=== PATIENT | male | born 1955 | race Caucasian/White ===

== ENCOUNTER 2016-10-18 10:42 | Inpatient (IN) ==
[2016-10-18] MEDS ORDERED: methylPREDNISolone SOD SUC 125 MG/2 ML VIAL IV STA (12:50)
[2016-10-18] MEDS ORDERED: ONDANSETRON 4 MG/2 ML VIAL IV STA (12:50)
[2016-10-18] MEDS ORDERED: ALBUTEROL/IPRATROPIUM 3 ML NEB RESP TX STA (12:50)
[2016-10-18] MEDS ORDERED: SODIUM CHLORIDE 0.9% 1,000 ML IV STA (12:50)
[2016-10-18 13:10] LABS: Apearance,Urine CLEAR (Clear); Bilirubin,Urine Negative (Negative); Blood, Urine Negative (Negative); Glucose,Urine (UA) Negative (Negative); Ketones,Urine Negative (Negative); Nitrite,Urine Negative (Negative); Protein,Urine 30 MG/DL; Squamous Epithelial Cell,Urine Occasional /HPF (0-10); Urine Color Yellow (Yellow); Urine Specific Gravity 1.013 (1.001-1.035); Urine Urobilinogen < 2.0 EU/DL (0.2-1.0); WBC,Urine 1 /HPF (0-6)
[2016-10-18] MEDS ORDERED: methylPREDNISolone SOD SUC 40 MG/1 ML VIAL ONE (13:10)
[2016-10-18] MEDS ORDERED: ONDANSETRON 4 MG/2 ML VIAL ONE (13:10)
[2016-10-18] MEDS ORDERED: methylPREDNISolone SOD SUC 125 MG/2 ML VIAL ONE (13:18)
[2016-10-18 13:20] LABS: Basophils % 0.5 % (0.0-0.8); Hematocrit 26.2 VOL% (42.0-52.0); Hemoglobin 8.6 GM/DL (14.0-18.0); Immature Granulocytes % 2.1 %; Immature Granulocytes Absolute 0.12 #; Lymphocytes # 0.4 10*3/uL (1.4-4.0); Lymphocytes % 6.9 % (21.2-54.2); Mean Corpuscular HGB Conc 32.8 GM/DL (32-36); Mean Corpuscular Hemoglobin 25 PG (27-34); Mean Corpuscular Volume 75.3 FL (87-102); Mean Platelet Volume 11.1 FL (9.6-12.0); Monocytes # 0.1 10*3/uL (0.11-0.8); NRBC # 0.03 10*3/uL; Neutrophils # 5.2 10*3/uL (1.4-7.4); Neutrophils % 89.5 % (38.7-73.9); Platelet Count 134 T/CUMM (130-400); Red Blood Count 3.48 MC/CUMM (3.8-5.5); Red Cell Distribution Width 19.1 % (9.3-17.3); White Blood Count 5.8 T/CUMM (4-12)
--- NOTE | 2016-10-18 13:26 | Emergency Department Note ---
ICamelia Kasabria, am scribing for, and in the presence of, Osmin Rodrigues MD 13:01. IRavi Charles R, MD, personally performed the services described in this documentation, ascribed by Billie Denise in my presence, and it is both accurate and complete 326 . Arrival - Arrival Chief Complaint: Weakness Stated Complaint: Spitting up phlegm-CA pt, just left cancer center ED Nursing Triage Note: CURRENTLY TAKING CHEMO/RADIATION FOR LUNG CA, PT WAS TOO WEAK TO GO FOR TREATMENT TODAY, DENIES CP/SOB, N/V ONSET THIS AM,. HAD TREATMENT YESTERDAY Mode of Arrival: Wheelchair Limitations: No Limitations Source: Patient Time Seen by Provider: 10/18/16 12:23 - History of Present Illness HPI Narrative: This is a 61 y/o black male presenting to the ED with c/o nausea, vomiting, and feeling to weak to go to radiation treatment this morning. Pt states he woke up this morning and was nauseated. He then vomited and states he has continued to vomit and feel weak. He received chemotherapy for his lung cancer yesterday. He denies chest pain, SOB, cough, fever, chills, abdominal pain, back pain, dysuria , and vision change. He is a pt of Dr. Calle. His PMHx is consistent with HTN , pacemaker, and PNA 07/2016. Consistency: constant Severity: moderate Allergies/Adverse Reactions: Allergies Allergy/AdvReac Type Severity Reaction Status Date / Time No Known Allergies Allergy Verified 10/18/16 11:24 Home Medications: Home Medications Medication Instructions Recorded Confirmed Type Carvedilol [Coreg] 6.25 mg PO BID W/MEALS 08/15/16 10/18/16 History Furosemide 40 mg PO BID 08/15/16 10/18/16 History Apixaban [Eliquis] 5 mg PO BID W/MEALS 10/18/16 10/18/16 History Fluticasone/Salmeterol 250-50 1 puff INH BID 10/18/16 10/18/16 History [Advair 250-50] Potassium Chloride 10 meq PO DAILY 10/18/16 10/18/16 History Review of System - Review of System 12 point system: reviewed and no additional remarkable complaints except as stated - Review of System Constitutional: Absent: chills, fever, weakness Eyes: Absent: vision change Head/Ears/Nose/Throat: Absent: nasal drainage Respiratory: Absent: cough, wheezing Cardiovascular: Absent: chest pain Gastrointestinal: Present: nausea, vomiting. Absent: abdominal pain, diarrhea Medical,Surgical,& Family Hx - Medical History Cardio: History of: Hypertension, Pacemaker, Cardiovascular Problems ( Assistant Professor Of Economics Dr. Kailash Kimbrough [facility] [phone]) Neurology: History of: TIA No history of: Seizures HEENT: History of: Ear Problem (Mild Loss), Eye Problem (Needs), Dental Problems (Missing Teeth) Respiratory: History of: Pneumonia (07/2016) No history of: Lung Cancer (Rt Lower Lobe Mass-For Bx 08/20/16) Hematology: No history of: Blood Transfusion Reaction Other: No history of: Cancer - Surgical History Cardiac Surgeries: Sugical HX of: Cardiac Catheterization (Stents), Cardiac Surgery (Pacemaker) HEENT Surgeries: Patient denies: Eye Surgery - Family History Family History: Reports;: Family Diabetes (Grandmother), Family Heart Disease ( Father/Mother) Denies;: Family Cancer, Family Stroke - Social History Smoking Status: Smoker, status unknown Exam Vital Signs: Vital Signs Temperature 98.2 F 10/18/16 12:31 Pulse Rate 105 H 10/18/16 14:15 Respiratory Rate 18 10/18/16 12:31 Blood Pressure 115/88 10/18/16 14:15 O2 Sat by Pulse Oximetry 98 10/18/16 14:00 - General General appearance: alert, in no apparent distress, cachectic, other (temporal wasting ) - Head Head exam: Present: atraumatic, normocephalic, normal inspection - Eye Eye exam: Present: PERRL, EOMI. Absent: normal appearance (anemic pale conjunctiva ) - ENT ENT exam: Present: mucous membranes moist, TM's normal bilaterally, normal external ear exam. Absent: normal exam, normal oropharynx - Expanded ENT Exam Throat exam: Present: other (thrush present on tongue and in the back of the pt' s throat) - Chest Chest inspection: Present: normal inspection, symmetric chest wall rise. Absent : tenderness - Respiratory Respiratory exam: Present: wheezes (bilateral ), other (egophony; mass to right lung ). Absent: normal lung sounds bilaterally - Cardiovascular Cardiovascular exam: Present: regular rate, normal rhythm, normal heart sounds - Abdominal Exam Abdominal exam: Present: soft, normal bowel sounds. Absent: distention, tenderness - Rectal Exam Rectal exam: Present: heme (-) stool - Extremities Exam Extremities exam: Present: normal inspection, full ROM, normal capillary refill. Absent: tenderness, pedal edema, calf tenderness - Back Exam Back exam: Present: normal inspection, full ROM. Absent: tenderness - Neurological Exam Neurological exam: Present: alert, oriented X3, CN II-XII intact, normal gait, reflexes normal. Absent: motor sensory deficit - Psychiatric Psychiatric exam: Present: normal affect, normal mood - Skin Skin exam: Present: warm, dry, intact, normal color, other (poor skin turgor ). Absent: rash, diaphoresis Course - Consultations Consultation #1: Dr. Redmond will admit for Time: 15:08 Results - Labs CBC & BMP: 10/18/16 12:44 10/18/16 12:44 Lab Results: I have reviewed the patients labs Disposition Clinical Impression: Right lower lobe lung mass, Dizziness, Nausea & vomiting, Generalized weakness , Anemia of chronic disease, Pleural effusion, right, COPD (chronic obstructive pulmonary disease) Case discussed with: patient, patient's family Disposition: Still a Patient Condition: Stable Time of Disposition: 15:18
[2016-10-18 13:53] LABS: Albumin 3.4 G/DL (3.4-5.0); Bilirubin,Total 2.7 MG/DL (0.2-1.0); Calcium 8.6 MG/DL (8.5-10.1); Lactic Acid 4.4 MMOL/L (0.4-2.0); Osmolality,Calculated 281.8 MOS/KG (273-304); Potassium 4.9 MMOL/L (3.5-5.1); Total Protein 7.6 G/DL (6.4-8.3)
[2016-10-18 13:56] LABS: Burr Cells 1+; Hypochromasia Slight; Macrocytosis 1+; Platelet Estimate Adequate
--- NOTE | 2016-10-18 14:07 | XRay Report ---
XR chest 1V portable Indication: Lung cancer. Shortness of breath. Comparison: Chest x-ray 08/20/2016 Technique: Portable AP chest was performed. Findings: Right-sided pleural effusion is present which is moderate in size. Parenchymal opacities in the right lung base may be part reflect atelectasis. Infectious process cannot be excluded. The degree of cardiomegaly is stable. AICD is stable. Right upper lung and left lung are otherwise clear. Bones and soft tissues are stable. Impression: 1. Moderate right-sided pleural effusion is demonstrated. 2. Parenchymal opacities within the right lung base may in part reflect atelectatic change. Infectious process is not excluded. 10/18/2016 2:03 PM PROCEDURE INTERPRETED AT [facility] DEPARTMENT OF RADIOLOGY Final Report Signed by: Dr. Pipo Ellis
--- NOTE | 2016-10-18 14:08 | XRay Report ---
Exam: XR abdomen 2V Date: 10/18/2016 12:50 PM Comparison: Chest x-ray 08/20/2016 Indication: Nausea and vomiting Technique:[Supine and erect abdomen] Findings: Gas in nondistended loops of small bowel with no free air. Diffuse arterial calcifications with small renal calculi. Progressive pleural and parenchymal findings at the visualized right lung base with left subclavian atrioventricular AICD. Impression: Gas in nondistended loops of small bowel which could be related to mild enteritis, etc. No free air. Progressive pleural and parenchymal findings at the right lung base in patient with carcinoma of the lung. Left subclavian atrioventricular AICD. Arterial calcifications with small renal calculi. PROCEDURE INTERPRETED AT [facility] DEPARTMENT OF RADIOLOGY Final Report Signed by: Dr. Edith Maier
[2016-10-18] MEDS ORDERED: ALBUTEROL/IPRATROPIUM 3 ML NEB RESP TX PRN (16:23)
[2016-10-18] MEDS ORDERED: LACTULOSE 20 GM/30 ML UDCUP PO PRN (16:23)
[2016-10-18] MEDS ORDERED: MYLANTA/LIDO VISC 2:1 300 ML BOTTLE SWISH/SPIT PRN (16:23)
[2016-10-18] MEDS ORDERED: ONDANSETRON 4 MG/2 ML VIAL IV PRN (16:23)
[2016-10-18] MEDS ORDERED: traMADol 50 MG TABLET PO PRN (16:23)
[2016-10-18] MEDS ORDERED: TEMAZEPAM 7.5 MG CAPSULE PO PRN (16:23)
[2016-10-18] MEDS ORDERED: MYLANTA/LIDO VISC 2:1 300 ML BOTTLE SWISH/SWAL PRN (16:23)
[2016-10-18] MEDS ORDERED: ACETAMINOPHEN 325 MG TABLET PO PRN (16:23)
[2016-10-18] MEDS ORDERED: ALPRAZolam 0.25 MG TABLET PO PRN (16:23)
[2016-10-18] MEDS ORDERED: SODIUM CHLORIDE 0.9% 1,000 ML IV SCH (16:23)
[2016-10-18] MEDS ORDERED: ALUMINUM/MAGNES/SIMETH MAX STR 30 ML UDCUP PO PRN (16:23)
[2016-10-18] MEDS ORDERED: LOPERAMIDE 2 MG CAPSULE PO PRN ×2 (16:23)
[2016-10-18 17:14] LABS: Basophils % 0.7 % (0.0-0.8); Hematocrit 25.4 VOL% (42.0-52.0); Hemoglobin 8.2 GM/DL (14.0-18.0); Immature Granulocytes % 2.4 %; Immature Granulocytes Absolute 0.11 #; Lymphocytes # 0.1 10*3/uL (1.4-4.0); Lymphocytes % 2.6 % (21.2-54.2); Mean Corpuscular HGB Conc 32.3 GM/DL (32-36); Mean Corpuscular Hemoglobin 25 PG (27-34); Mean Corpuscular Volume 76.3 FL (87-102); Mean Platelet Volume 11.7 FL (9.6-12.0); Monocytes % 0.9 % (1.7-12.7); NRBC # 0.03 10*3/uL; Neutrophils # 4.2 10*3/uL (1.4-7.4); Neutrophils % 93.4 % (38.7-73.9); Platelet Count 134 T/CUMM (130-400); Red Blood Count 3.33 MC/CUMM (3.8-5.5); Red Cell Distribution Width 18.8 % (9.3-17.3); White Blood Count 4.5 T/CUMM (4-12)
[2016-10-18 17:23] LABS: INR 1.7; PT Patient Result 18.5 SECS
[2016-10-18] MEDS: DEXT 5% NACL 0.45% KCL 20 MEQ 20 MEQ/1,000 ML BAG IV SCH ×2 (17:32→23:57)
[2016-10-18] MEDS: FLUCONAZOLE INJ 100 MG in IV BAG 1 EACH IV SCH (17:33)
[2016-10-18] MEDS: CARVEDILOL 6.25 MG TABLET PO SCH (17:33)
[2016-10-18] MEDS: APIXABAN 5 MG TABLET PO SCH (17:33)
[2016-10-18 17:48] LABS: Magnesium 2.5 MG/DL (1.8-2.4); Uric Acid 12.2 MG/DL (3.5-7.2)
[2016-10-18 17:53] LABS: Albumin 3.2 G/DL (3.4-5.0); Calcium 8.4 MG/DL (8.5-10.1); Total Protein 7.3 G/DL (6.4-8.3)
[2016-10-18 17:54] LABS: Osmolality,Calculated 285.5 MOS/KG (273-304)
[2016-10-18 20:18] LABS: Lymphocytes 7 % (20-55); Myelocytes 4 %; Segmented Neutrophils 89 % (50-85); Total Cells Counted 100
[2016-10-18 20:19] LABS: Elliptocytes Few; Hypochromasia 1+; Platelet Estimate Adequate; Polychromasia Few
[2016-10-18] MEDS: FLUTICASONE/SALMETEROL 250-50 DISKUS 14 DOSE INH SCH (21:06)
[2016-10-18] MEDS: FUROSEMIDE 40 MG TABLET PO SCH (21:06)
[2016-10-19] MEDS ORDERED: DEXT 5% NACL 0.45% KCL 20 MEQ 20 MEQ/1,000 ML BAG IV SCH (04:30)
[2016-10-19 05:43] LABS: Basophils # 0.1 10*3/uL (0.0-0.2); Hematocrit 24.5 VOL% (42.0-52.0); Immature Granulocytes % 5.1 %; Immature Granulocytes Absolute 0.25 #; Lymphocytes # 0.1 10*3/uL (1.4-4.0); Lymphocytes % 1.8 % (21.2-54.2); Mean Corpuscular HGB Conc 31.4 GM/DL (32-36); Mean Corpuscular Hemoglobin 24 PG (27-34); Mean Corpuscular Volume 77.8 FL (87-102); Mean Platelet Volume 11.5 FL (9.6-12.0); Monocytes # 0.1 10*3/uL (0.11-0.8); NRBC # 0.08 10*3/uL; Neutrophils # 4.4 10*3/uL (1.4-7.4); Neutrophils % 90.1 % (38.7-73.9); Platelet Count 102 T/CUMM (130-400); Red Blood Count 3.15 MC/CUMM (3.8-5.5); Red Cell Distribution Width 18.7 % (9.3-17.3); White Blood Count 4.9 T/CUMM (4-12)
[2016-10-19 05:45] LABS: Hemoglobin 7.7 GM/DL (14.0-18.0)
[2016-10-19 06:30] LABS: Anisocytosis 2+; Band Neutrophils 11 % (0-10); Hypochromasia 2+; Lymphocytes 2 % (20-55); Macrocytosis 2+; Metamyelocytes 14 %; Myelocytes 2 %; Ovalocytes 1+; Platelet Estimate Decreased; Polychromasia Few; Segmented Neutrophils 69 % (50-85); Total Cells Counted 100
--- NOTE | 2016-10-19 08:28 | XRay Report ---
XR chest 2V Indication: Shortness of breath. Comparison: Chest x-ray 10/18/2016 Technique: PA and lateral chest x-ray was performed. Findings: Right-sided pleural effusion is stable. The degree of cardiomegaly is stable. Cardiac pacemaker is stable. Right upper lung and left lung are clear. Bones and soft tissues appear stable. Impression: 1. Stable appearance of the chest. Findings as detailed. 10/19/2016 8:25 AM PROCEDURE INTERPRETED AT [facility] DEPARTMENT OF RADIOLOGY Final Report Signed by: Dr. Pipo Ellis
[2016-10-19] MEDS: PANTOPRAZOLE 40 MG VIAL IV SCH (08:39)
[2016-10-19] MEDS: FUROSEMIDE 40 MG TABLET PO SCH (08:41)
[2016-10-19] MEDS: CARVEDILOL 6.25 MG TABLET PO SCH ×2 (08:41→17:25)
[2016-10-19] MEDS: APIXABAN 5 MG TABLET PO SCH ×2 (08:41→17:24)
[2016-10-19] MEDS: FLUTICASONE/SALMETEROL 250-50 DISKUS 14 DOSE INH SCH ×2 (08:41→21:20)
[2016-10-19] MEDS: DEXT 5% NACL 0.45% KCL 20 MEQ 20 MEQ/1,000 ML BAG IV SCH (08:42)
[2016-10-19] MEDS ORDERED: POTASSIUM CHLORIDE 10 MEQ TABLET PO SCH (09:00)
--- NOTE | 2016-10-19 09:30 | Oncology History&Physical ---
History of Present Illness Chief complaint: Acute dehydration and stomatitis History of present illness: Mr. Bey is a 61 year old male admitted with dehydration and apparently with monilial stomatitis as well. He also has worsening renal failure since admission. 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 He has been on radiation therapy. He presented to the emergency room on the afternoon of October 18 complaining of inability to take in adequate liquids and also demonstrating evidence of stomatitis including monilial stomatitis. In addition, he had a modestly elevated urea nitrogen 33 with a serum creatinine of 1.1. This is stage IIIa, T3N2 lung cancer. He has had 1 course of Taxol and carboplatin chemotherapy and was started on radiation therapy on or about September. He has now reached the point that he is having severe dysphagia and has become profoundly weak and debilitated. His serum potassium yesterday was at upper limits of normal. We hydrated him fairly aggressively overnight. He had a normal serum creatinine of 1.1 yesterday. Lab work done today also includes hyperkalemia and in addition, the patient's creatinine is actually up to 1.5 today which is worrisome. I am increasing his IV fluid rate and discontinuing potassium from the patient's drip. In addition, with hydration, his hemoglobin has fallen and we are going to transfuse packed red cells today. His uric acid level on admission was 12.2 and we are starting allopurinol daily. He has a long history of cigarette use and was found to have a right sided lower lobe lung mass in July 2016. Mass was 8.2 cm in greatest diameter and arises from the right hilum. A PET scan was done August 05, 2016 and suggested a small area of paraesophageal lymphadenopathy as the only additional area of tumor involvement. He was nonsurgical. Past medical history: Allergies: No known allergies. Review of systems: General: Positive for fatigue. Negative for fever or night sweats until recently. ENT: Positive for mouth soreness and rawness and mouth pain of recent onset but negative in the past. No history of sinus drainage or congestion. No history of epistaxis. Cardiovascular: Negative for claudication, irregular heartbeat or palpitations and negative for cardiac type chest pain. Pulmonary: He is having no painful respiration or pleuritic chest pain. He is short of breath but I think this is multifactorial. GI: Positive for odynophagia and dysphagia. Negative for abdominal pain, constipation, nausea or vomiting. : Negative for dysuria or hematuria Musculoskeletal: Negative for significant bone or joint pain but I note that the patient has clubbing. Neurologic: Negative headaches or gait disturbances or focal weakness. Psychiatric: Negative for psychiatric illness or confusion. Hematologic: Positive for anemia. Negative for bleeding disorders or blood dyscrasias. Social history: Positive for tobacco use. Physical examination: General: The patient is acutely and chronically ill. Eyes: Normal lids and conjunctivae. ENT: His oral mucosa is dry. His voice is slightly hoarse. Poor dentition. Neck: His trachea is midline and he has no obvious neck masses. Lungs: Coarse breath sounds throughout without rubs, rales or rhonchi. There is symmetrical chest motion with respiration. Cardiovascular: He has clubbing. There is no cyanosis or edema. His heart rhythm is regular without murmur, gallop or rub. There is no jugular venous distention. Abdomen: No abdominal masses, organomegaly, distention, tenderness or ascites. Musculoskeletal: He has clubbing. He has generalized muscle weakness without focal muscle atrophy or bone or joint deformity. Neurologic: Cranial nerves II through XII are intact. There are no focal neurologic deficits. Psychiatric: The patient appears to be fully oriented. Impression: He is critically ill with multiple problems as listed: Problems: Acute dehydration Hyperkalemia Hyperuricemia Anemia Monilial esophagitis Squamous cell lung cancer COPD He has been on oral potassium and Lasix, both of which I am discontinuing. The patient has been started on allopurinol. We are monitoring lab work daily. We are going to transfuse him and were treating his esophagitis. Actually, the side effects from his lung cancer itself, are only modest compared to some of the other problems going on and related to his treatment. See my orders. Home Medications Medication Instructions Recorded Confirmed Type Carvedilol [Coreg] 6.25 mg PO BID W/MEALS 08/15/16 10/18/16 History Furosemide 40 mg PO BID 08/15/16 10/18/16 History Apixaban [Eliquis] 5 mg PO BID W/MEALS 10/18/16 10/18/16 History Fluticasone/Salmeterol 250-50 1 puff INH BID 10/18/16 10/18/16 History [Advair 250-50] Potassium Chloride 10 meq PO DAILY 10/18/16 10/18/16 History Allergies Allergy/AdvReac Type Severity Reaction Status Date / Time No Known Allergies Allergy Verified 10/18/16 11:24 Medical,Surgical,& Family Hx - Medical History Cardio: History of: Hypertension, Pacemaker, Cardiovascular Problems ( Grounds Keeper Dr. Kailash Kimbrough [facility] [phone]) Neurology: History of: TIA No history of: Seizures HEENT: History of: Ear Problem (Mild Loss), Eye Problem (Needs), Dental Problems (Missing Teeth) Respiratory: History of: Pneumonia (07/2016) No history of: Lung Cancer (Rt Lower Lobe Mass-For Bx 08/20/16) Hematology: No history of: Blood Transfusion Reaction Other: No history of: Cancer - Surgical History Cardiac Surgeries: Sugical HX of: Cardiac Catheterization (Stents), Cardiac Surgery (Pacemaker) HEENT Surgeries: Patient denies: Eye Surgery - Family History Family History: Reports;: Family Diabetes (Grandmother), Family Heart Disease ( Father/Mother) Denies;: Family Cancer, Family Stroke - Social History Smoking Status: Former smoker Exam - Constitutional Vitals: Period Temp Pulse Resp BP Sys/Abdullahi Pulse Ox Last 24 Hr 97.0 F-98.4 F 95-104 16-20 100-115/71-93 98-100 Results - Labs CBC & BMP: 10/19/16 04:56 10/19/16 09:45
[2016-10-19 10:31] LABS: Bilirubin,Total 2.5 MG/DL (0.2-1.0); Calcium 8.2 MG/DL (8.5-10.1)
[2016-10-19 10:36] LABS: Potassium 6.3 MMOL/L (3.5-5.1)
[2016-10-19] MEDS ORDERED: SODIUM CHLORIDE 0.45% 1,000 ML IV SCH (11:00)
[2016-10-19] MEDS ORDERED: SODIUM CHLORIDE 0.9% 250 ML IV PRN (12:06)
[2016-10-19] MEDS: DEXTROSE 5% NACL 0.45% 1,000 ML IV SCH ×2 (12:56→22:40)
[2016-10-19] MEDS: ALLOPURINOL 300 MG TABLET PO SCH (12:56)
[2016-10-19] MEDS: FLUCONAZOLE INJ 100 MG in IV BAG 1 EACH IV SCH (19:37)
[2016-10-19 19:59] LABS: Apearance,Urine Slightly Hazy (Clear); Bilirubin,Urine Negative (Negative); Blood, Urine Moderate mg/dL (Negative); Glucose,Urine (UA) Negative (Negative); Hyaline Casts,Urine 13 /LPF (0-3); Ketones,Urine Negative (Negative); Nitrite,Urine Negative (Negative); Protein,Urine 30 MG/DL; Urine Color Yellow (Yellow); Urine Specific Gravity 1.012 (1.001-1.035); Urine Urobilinogen < 2.0 EU/DL (0.2-1.0)
[2016-10-20 05:14] LABS: Basophils # 0.1 10*3/uL (0.0-0.2); Basophils % 1.5 % (0.0-0.8); Hematocrit 27.2 VOL% (42.0-52.0); Hemoglobin 8.6 GM/DL (14.0-18.0); Immature Granulocytes % 4.5 %; Lymphocytes # 0.1 10*3/uL (1.4-4.0); Mean Corpuscular HGB Conc 31.6 GM/DL (32-36); Mean Corpuscular Hemoglobin 25 PG (27-34); Mean Corpuscular Volume 78.6 FL (87-102); Mean Platelet Volume 12.5 FL (9.6-12.0); Monocytes # 0.1 10*3/uL (0.11-0.8); Monocytes % 1.8 % (1.7-12.7); NRBC # 0.08 10*3/uL; Neutrophils % 90.2 % (38.7-73.9); Red Blood Count 3.46 MC/CUMM (3.8-5.5); White Blood Count 6.7 T/CUMM (4-12)
[2016-10-20 05:22] LABS: Platelet Count 85 T/CUMM (130-400)
[2016-10-20 05:41] LABS: Band Neutrophils 1 % (0-10); Lymphocytes 2 % (20-55); Metamyelocytes 2 %; Nucleated Red Blood Cells 4 (0-5); Segmented Neutrophils 93 % (50-85); Total Cells Counted 100
[2016-10-20 05:45] LABS: Hypochromasia 1+; Microcytosis 1+
[2016-10-20 05:46] LABS: Platelet Estimate Decreased
[2016-10-20] MEDS: DEXTROSE 5% NACL 0.45% 1,000 ML IV SCH ×3 (07:50→15:53)
[2016-10-20 08:14] LABS: Albumin 3.1 G/DL (3.4-5.0); Calcium 8.4 MG/DL (8.5-10.1); Osmolality,Calculated 280.4 MOS/KG (273-304); Total Protein 6.8 G/DL (6.4-8.3)
[2016-10-20 08:18] LABS: Potassium 6.3 MMOL/L (3.5-5.1)
[2016-10-20] MEDS: APIXABAN 5 MG TABLET PO SCH ×2 (08:24→17:43)
[2016-10-20] MEDS: PANTOPRAZOLE 40 MG VIAL IV SCH (08:24)
[2016-10-20] MEDS: ALLOPURINOL 300 MG TABLET PO SCH (08:24)
[2016-10-20] MEDS: CARVEDILOL 6.25 MG TABLET PO SCH ×2 (08:24→17:43)
[2016-10-20] MEDS: FLUTICASONE/SALMETEROL 250-50 DISKUS 14 DOSE INH SCH ×2 (08:26→21:34)
--- NOTE | 2016-10-20 10:20 | Ultrasound Report ---
US renal Bilateral Indication: Lung cancer. Elevated creatinine. Comparison: None. Technique: Using transcutaneous probe, routine renal ultrasound was performed. Ultrasound images were captured and stored. Findings: Right kidney measures 10.0 cm in craniocaudal dimension. Left kidney measures 9.0 cm in craniocaudal dimension. Each kidney demonstrates moderate lobulation of the renal cortex. No hydronephrosis or perinephric fluid collection is present. Trace amount of ascites is suggested adjacent to liver. Impression: 1. No specific abnormality of either kidney is demonstrated. 2. Trace fluid is present within the abdomen. 10/20/2016 10:15 AM PROCEDURE INTERPRETED AT [facility] DEPARTMENT OF RADIOLOGY Final Report Signed by: Dr. Pipo Ellis
--- NOTE | 2016-10-20 10:36 | Oncology Progress Note ---
Oncology Subjective PN Interval history: Mr. Bey is a 61 year old male admitted with dehydration and apparently with monilial stomatitis as well. He also has worsening renal failure since admission. 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 This is stage IIIa, T3N2 lung cancer. He has had 1 course of Taxol and carboplatin chemotherapy and was started on radiation therapy on or about September. He has now reached the point that he is having severe dysphagia and has become profoundly weak and debilitated. He has been on radiation therapy. He presented to the emergency room on the afternoon of October 18 complaining of inability to take in adequate liquids and also demonstrating evidence of stomatitis including monilial stomatitis. In addition, he had a modestly elevated urea nitrogen 33 with a serum creatinine of 1.1. However, his acidosis and his worsening liver function are contraindications to this substitution. His AST is up to 1891 with an ALT of 1368. I reviewed his medications yesterday and stopped his Lasix and his potassium. I will review them again today. However,is renal function is not improving. He is becoming progressively more acidotic. I have ordered a stat lactic acid level and it is 5.1 with normal being up to 2.0. In addition he still has hyperuricemia with a uric acid level today of 10.8. Renal function has worsened as well. His urea nitrogen is 50 with a serum creatinine of 1.6. There is a shortage of sodium bicarbonate. Sodium acetate is available but only in specific circumstances which, according to the pharmacy, do not include lactic acidosis although if his condition worsens enough, we could probably give it from the crash cart. We also obtained an ultrasound of his kidneys today and there is no evidence of ureteral obstruction. On physical examination today he remains acutely and chronically ill but does not appear to have worsened. He confirms this when I question him. His oral mucosa and pharynx are unchanged. His teeth are in very poor repair. His oral mucosa is probably less dry. Lungs: Coarse breath sounds throughout with a few scattered rhonchi. Cardiovascular: His heart rhythm is regular without murmur, gallop or rub. He has mild tachycardia. Impression: Renal function is deteriorating and he has evidence of acidosis. I would like to hydrate him further with 500 mL of D5W plus sodium bicarbonate but there is a limited amount of the sodium bicarbonate available. I have personally contacted Dr. Nitin Leo for advice on this. The patient does have an elevated lactic acid level which is exceedingly worrisome. He is not supposed to have extensive lung cancer but this could be an ominous sign if this represents progression of his cancer. COPD remains relatively stable. Hyperuricemia persists. He is on allopurinol. Exam - Constitutional Vitals: Period Temp Pulse Resp BP Sys/Abdullahi Pulse Ox Last 24 Hr 96.2 F-97.7 F 69-98 16-20 97-119/66-88 94-100 Results - Labs CBC & BMP: 10/20/16 04:28 10/20/16 06:00
--- NOTE | 2016-10-20 14:40 | Ultrasound Report ---
US liver Indication: Lung cancer. Liver failure. Renal failure. Comparison: None. Technique: Using transcutaneous probe, ultrasound imaging of the right upper quadrant was performed. Ultrasound images were captured and stored. Imaged structures include the liver, gallbladder, pancreas, right kidney, aorta, and inferior vena cava. Findings: Moderately sized right-sided pleural effusion is demonstrated. The right hepatic lobe measures 16 cm in craniocaudal dimension. Heterogeneous hyperechoic liver parenchyma is present that may in part reflect hepatic steatosis. The portal vein demonstrates sinusoidal pulsatile flow. Small amount of intra-abdominal ascites is demonstrated. The hepatic veins appear distended. No color flow was applied to the hepatic veins. Small amount of pericholecystic fluid is demonstrated. In addition, the gallbladder wall is minimally thickened measuring 3.5 mm. These findings are nonspecific in the setting of ascites. The common bile duct is normal in size measuring 4.4 mm. The visualized portion of the pancreatic head is unremarkable. The body and tail are not visualized. The right kidney measures 10.3 cm in craniocaudal dimension and is otherwise unremarkable. Aorta and inferior vena cava demonstrate no significant abnormalities. Impression: 1. Nonspecific heterogeneous hyperechoic appearance of the liver is demonstrated without evidence of focal mass. This could reflect findings of hepatic steatosis and/or cirrhotic features. 2. The portal vein demonstrates sinusoidal pulsatile flow. 3. Pleural effusion is present right chest. 4. Ascites is present. Additionally, gallbladder wall thickening and pericholecystic fluid are present. The findings of gallbladder wall thickening and pericholecystic fluid are nonspecific in the setting of ascites. In the correct clinical scenario, cholecystitis could be considered. 5. No specific abnormality of the pancreas. 10/20/2016 2:33 PM PROCEDURE INTERPRETED AT [facility] DEPARTMENT OF RADIOLOGY Final Report Signed by: Dr. Pipo Ellis
--- NOTE | 2016-10-20 14:52 | Nephrology Consult Note ---
History of Present Illness Chief complaint: Renal insufficiency, acidosis History of present illness: Mr. Bey is a 61 year old male with squamous cell carcinoma of the lung diagnosed 08/20/2016. He has had one course of Taxol and carboplatin. He started radiation therapy about 2 weeks ago. He was admitted with dysphasia and stomatitis. P.o. intake has been poor. He has developed renal insufficiency and lactic acidosis since admission. He is moderately short of breath. Home Medications Medication Instructions Recorded Confirmed Type Carvedilol [Coreg] 6.25 mg PO BID W/MEALS 08/15/16 10/18/16 History Furosemide 40 mg PO BID 08/15/16 10/18/16 History Apixaban [Eliquis] 5 mg PO BID W/MEALS 10/18/16 10/18/16 History Fluticasone/Salmeterol 250-50 1 puff INH BID 10/18/16 10/18/16 History [Advair 250-50] Potassium Chloride 10 meq PO DAILY 10/18/16 10/18/16 History Allergies Allergy/AdvReac Type Severity Reaction Status Date / Time No Known Allergies Allergy Verified 10/18/16 11:24 Medical,Surgical,& Family Hx - Medical History Cardio: History of: Hypertension, Pacemaker, Cardiovascular Problems ( Human Resources Recruiter Dr. Kailash Kimbrough [facility] [phone]) Neurology: History of: TIA No history of: Seizures HEENT: History of: Ear Problem (Mild Loss), Eye Problem (Needs), Dental Problems (Missing Teeth) Respiratory: History of: Pneumonia (07/2016) No history of: Lung Cancer (Rt Lower Lobe Mass-For Bx 08/20/16) Hematology: No history of: Blood Transfusion Reaction Other: No history of: Cancer - Surgical History Cardiac Surgeries: Sugical HX of: Cardiac Catheterization (Stents), Cardiac Surgery HEENT Surgeries: Patient denies: Eye Surgery - Family History Family History: Reports;: Family Diabetes (Grandmother), Family Heart Disease ( Father/Mother) Denies;: Family Cancer, Family Stroke - Social History Smoking Status: Former smoker Review of Systems Constitutional: anorexia, fatigue Nose, mouth and throat: as per HPI Cardiovascular: dyspnea on exertion Respiratory: dyspnea Gastrointestinal: nausea, no abdominal pain, no hematemesis, no hematochezia, no vomiting Genitourinary: no dysuria, no flank pain, no hematuria Musculoskeletal: muscle weakness Neurological: no abnormal speech, no confusion Exam - Vital Signs Vital signs: Period Temp Pulse Resp BP Sys/Abdullahi Pulse Ox Last 24 Hr 96.2 F-97.7 F 85-98 16-20 97-114/66-88 94-100 Exam: Gen.: Alert and oriented x3. ENT: Pupils equal round reactive to light. EOMs intact. Mucous membranes moist. Neck: Supple. No JVD or bruit. Cardiovascular: Regular rate and rhythm. No murmur rub or gallop Lungs: Decreased breath sounds right base. No rales or wheezes Abdomen: Soft. Nontender. Positive bowel sounds. No organomegaly Extremities: No edema Results - Labs CBC & BMP: 10/20/16 04:28 10/20/16 06:00 Assessment and Plan (1) Squamous cell carcinoma lung Status: Acute Assessment and plan: 61-year-old man admitted with: * Squamous cell carcinoma, lung. Status post Taxol and carboplatin chemotherapy. Undergoing radiation treatment * Stomatitis * ARF. Creatinine is risen from 1.1-1.6. He has been oliguric despite positive fluid balance. * Hyperkalemia. Potassium supplement discontinued. This is worsened by acidosis * Metabolic acidosis. Lactic acid level 5.1. Bicarbonate should be added to his IV fluid * Abnormal liver function tests. Liver dysfunction is the likely cause for his lactic acidosis. Liver ultrasound is underway Current Visit: Yes (2) ARF (acute renal failure) Status: Acute Current Visit: Yes (3) Lactic acidosis Status: Acute Current Visit: Yes (4) Abnormal liver function tests Status: Acute Current Visit: Yes (5) Hyperkalemia Status: Acute Current Visit: Yes (6) Stomatitis Status: Acute Current Visit: Yes
[2016-10-20] MEDS: SODIUM BICARB INJ 50 MEQ in DEXTROSE 5% NACL 0.45% 1,000 ML IV SCH (17:42)
[2016-10-20] MEDS: FLUCONAZOLE INJ 100 MG in IV BAG 1 EACH IV SCH (17:42)
[2016-10-21] MEDS: SODIUM BICARB INJ 50 MEQ in DEXTROSE 5% NACL 0.45% 1,000 ML IV SCH ×4 (07:40→17:53)
--- NOTE | 2016-10-21 07:53 | Oncology Progress Note ---
Assessment and Plan (1) COPD (chronic obstructive pulmonary disease) Status: Acute Current Visit: Yes (2) Lactic acidosis Status: Acute Current Visit: Yes (3) Nausea & vomiting Status: Acute Current Visit: Yes (4) Pleural effusion, right Status: Acute Current Visit: Yes (5) Squamous cell carcinoma lung Status: Acute Current Visit: Yes (6) Stomatitis Status: Acute Current Visit: Yes Oncology Subjective PN Interval history: Mr. Estrella states he still feels weak today. Labs were not done this morning so have ordered these to see how his renal and liver function are doing. I will add Rocephin for empiric coverage. We will continue with Diflucan and IV fluids. He has severe oral candidiasis. Once his labs returned, I will consider doing a CT scan depending on what his kidney function looks like. If the CT scan cannot be done with contrast, I will be better served to just wait and do this once his kidney function recovers. I will also check an HIV on him. I encouraged him to get out of bed as tolerated. Hopefully as we treat his oral candidiasis will be able to take in more p.o. intake. Exam - Constitutional Vitals: Period Temp Pulse Resp BP Sys/Abdullahi Pulse Ox Last 24 Hr 97.2 F-97.9 F 82-96 18-20 91-103/59-81 95-100 General appearance: normal weight, no acute distress - Head Head Exam: Present: normocephalic, atraumatic - Eye Eye Exam: Present: EOMI Pupils: Present: PERRL - Neck Neck exam: Absent: lymphadenopathy, thyromegaly - Respiratory Respiratory exam: Present: CTAB. Absent: wheezes - Cardiovascular Cardiovascular exam: Present: tachycardia. Absent: RRR - GI/Abdominal GI/Abdominal exam: Present: soft. Absent: ascites, distended, mass - Neurological Exam Neurological exam: Present: alert, oriented X3 - Psychiatric Psychiatric exam: Present: normal affect, normal mood - Skin Skin exam: Present: warm, dry Results - Labs CBC & BMP: 10/20/16 04:28 10/20/16 06:00 Lab Results: I have reviewed the past 24 hour labs
[2016-10-21 09:14] LABS: Basophils # 0.1 10*3/uL (0.0-0.2); Basophils % 1.2 % (0.0-0.8); Hematocrit 24.9 VOL% (42.0-52.0); Hemoglobin 8.1 GM/DL (14.0-18.0); Immature Granulocytes % 2.9 %; Immature Granulocytes Absolute 0.15 #; Lymphocytes # 0.3 10*3/uL (1.4-4.0); Lymphocytes % 5.1 % (21.2-54.2); Mean Corpuscular HGB Conc 32.5 GM/DL (32-36); Mean Corpuscular Hemoglobin 25 PG (27-34); Mean Corpuscular Volume 76.9 FL (87-102); Mean Platelet Volume 13.6 FL (9.6-12.0); Monocytes # 0.3 10*3/uL (0.11-0.8); Monocytes % 5.9 % (1.7-12.7); NRBC # 0.29 10*3/uL; Neutrophils # 4.3 10*3/uL (1.4-7.4); Neutrophils % 84.9 % (38.7-73.9); Platelet Count 71 T/CUMM (130-400); Red Blood Count 3.24 MC/CUMM (3.8-5.5); Red Cell Distribution Width 18.9 % (9.3-17.3); White Blood Count 5.1 T/CUMM (4-12)
[2016-10-21 09:33] LABS: Burr Cells Slight; Elliptocytes Few; Hypochromasia 1+; Platelet Estimate Decreased
[2016-10-21] MEDS: APIXABAN 5 MG TABLET PO SCH ×2 (09:33→17:46)
[2016-10-21] MEDS: ALLOPURINOL 300 MG TABLET PO SCH (09:33)
[2016-10-21] MEDS: cefTRIAXone 1,000 MG in SODIUM CHLORIDE 0.9% 100 ML IV SCH (09:33)
[2016-10-21 09:34] LABS: Microcytosis Slight
[2016-10-21] MEDS: FLUTICASONE/SALMETEROL 250-50 DISKUS 14 DOSE INH SCH ×2 (09:34→21:37)
[2016-10-21] MEDS: PANTOPRAZOLE 40 MG VIAL IV SCH (09:34)
[2016-10-21] MEDS: CARVEDILOL 6.25 MG TABLET PO SCH ×2 (09:34→17:46)
[2016-10-21 10:05] LABS: Albumin 2.9 G/DL (3.4-5.0); Bilirubin,Total 2.3 MG/DL (0.2-1.0); Calcium 8.2 MG/DL (8.5-10.1); Magnesium 2.5 MG/DL (1.8-2.4); Osmolality,Calculated 283.4 MOS/KG (273-304); Total Protein 6.4 G/DL (6.4-8.3)
[2016-10-21 11:39] LABS: HIV Antigen/Antibody Result Nonreactive (Nonreactive)
--- NOTE | 2016-10-21 12:55 | Nephrology Progress Note ---
Nephrology - PN: Subj Interval history: He states he feels a little better today. Shortness of breath has improved. Exam (PN)-Nephrology - Vital Signs Vital signs: Period Temp Pulse Resp BP Sys/Abdullahi Pulse Ox Last 24 Hr 96.9 F-97.9 F 82-96 18-20 91-115/59-81 95-100 Exam: ENT: Normal Cardiovascular: Regular rate and rhythm. No murmur rub or gallop Lungs: Clear Extremities: No edema - Lab 10/21/16 08:52 10/21/16 08:52 Most recent lab results Calcium 8.2 MG/DL (8.5-10.1) L 10/21/16 08:52 Magnesium 2.5 MG/DL (1.8-2.4) H 10/21/16 08:52 Assessment and Plan (1) Squamous cell carcinoma lung Status: Acute Assessment and plan: 61-year-old man admitted with: * Squamous cell carcinoma, lung. Status post Taxol and carboplatin chemotherapy. Undergoing radiation treatment * Stomatitis * ARF. UOP improving. Creat stable. Rec avoiding contrast at this time * Hyperkalemia. Potassium supplement discontinued. This is worsened by acidosis. Improving * Metabolic acidosis. Lactic acid level 5.1. Bicarbonate should be added to his IV fluid * Abnormal liver function tests. Liver dysfunction is the likely cause for his lactic acidosis. Liver ultrasound is underway Current Visit: Yes (2) ARF (acute renal failure) Status: Acute Current Visit: Yes (3) Lactic acidosis Status: Acute Current Visit: Yes (4) Abnormal liver function tests Status: Acute Current Visit: Yes (5) Hyperkalemia Status: Acute Current Visit: Yes (6) Stomatitis Status: Acute Current Visit: Yes
[2016-10-21] MEDS: FLUCONAZOLE INJ 100 MG in IV BAG 1 EACH IV SCH (17:46)
[2016-10-22] MEDS: SODIUM BICARB INJ 50 MEQ in DEXTROSE 5% NACL 0.45% 1,000 ML IV SCH ×3 (04:43→23:40)
[2016-10-22 05:19] LABS: Basophils # 0.1 10*3/uL (0.0-0.2); Basophils % 2.7 % (0.0-0.8); Hematocrit 25.7 VOL% (42.0-52.0); Hemoglobin 8.2 GM/DL (14.0-18.0); Immature Granulocytes % 2.3 %; Immature Granulocytes Absolute 0.11 #; Lymphocytes # 0.8 10*3/uL (1.4-4.0); Lymphocytes % 15.4 % (21.2-54.2); Mean Corpuscular HGB Conc 31.9 GM/DL (32-36); Mean Corpuscular Hemoglobin 25 PG (27-34); Mean Corpuscular Volume 78.4 FL (87-102); Mean Platelet Volume 12.4 FL (9.6-12.0); Monocytes # 0.8 10*3/uL (0.11-0.8); Monocytes % 16.5 % (1.7-12.7); NRBC # 1.78 10*3/uL; Neutrophils # 3.1 10*3/uL (1.4-7.4); Neutrophils % 63.1 % (38.7-73.9); Red Blood Count 3.28 MC/CUMM (3.8-5.5); Red Cell Distribution Width 18.7 % (9.3-17.3); White Blood Count 4.9 T/CUMM (4-12)
[2016-10-22 05:21] LABS: Platelet Count 68 T/CUMM (130-400)
[2016-10-22 05:44] LABS: Band Neutrophils 2 % (0-10); Hypochromasia 1+; Lymphocytes 11 % (20-55); Microcytosis 1+; Myelocytes 1 %; Nucleated Red Blood Cells 46 (0-5); Segmented Neutrophils 78 % (50-85); Total Cells Counted 100
[2016-10-22 05:45] LABS: Ovalocytes Slight
[2016-10-22 05:46] LABS: Platelet Estimate Decreased
[2016-10-22 06:02] LABS: Calcium 8.5 MG/DL (8.5-10.1); Magnesium 2.6 MG/DL (1.8-2.4); Osmolality,Calculated 283.4 MOS/KG (273-304); Potassium 5.8 MMOL/L (3.5-5.1); Total Protein 6.6 G/DL (6.4-8.3)
[2016-10-22] MEDS ORDERED: SODIUM CHLORIDE 0.9% 1,000 ML IV ONE (08:02)
--- NOTE | 2016-10-22 08:06 | Oncology Progress Note ---
Assessment and Plan - Time spent with patient Time spent with patient: Less than 30 minutes (1) COPD (chronic obstructive pulmonary disease) Status: Acute Current Visit: Yes (2) Lactic acidosis Status: Acute Current Visit: Yes (3) Nausea & vomiting Status: Acute Current Visit: Yes (4) Pleural effusion, right Status: Acute Current Visit: Yes (5) Squamous cell carcinoma lung Status: Acute Current Visit: Yes (6) Stomatitis Status: Acute Current Visit: Yes Oncology Subjective PN Interval history: Mr. Padilla feels about the same today. Has oral candidiasis is slowly improving. His kidney function appears about the same. IV fluids at 1 25/h. His hemoglobin is stable just above 8. I will hold off on giving him a transfusion for now but will consider this if it drops below 8. I will give him a bolus of normal saline today and then continue with his current rate of IV fluids. I will consult physical therapy to get him out of bed. We will continue with Diflucan and Rocephin for now. His liver function continues to show significant elevation in his AST and ALT. His bilirubin has remained stable. I am still holding off on repeating any type of imaging until his kidney function improves further. Exam - Constitutional Vitals: Period Temp Pulse Resp BP Sys/Abdullahi Pulse Ox Last 24 Hr 96.2 F-97.4 F 85-93 18-26 92-115/66-89 96-100 General appearance: normal weight, no acute distress - Head Head Exam: Present: normocephalic, atraumatic - ENT ENT exam: Present: normal exam, normal oropharynx - Neck Neck exam: Absent: lymphadenopathy, thyromegaly - Respiratory Respiratory exam: Present: CTAB. Absent: wheezes - Cardiovascular Cardiovascular exam: Present: RRR. Absent: irregular rhythm, JVD - GI/Abdominal GI/Abdominal exam: Present: soft. Absent: ascites, mass Results - Labs CBC & BMP: 10/22/16 04:55 10/22/16 04:55 Lab Results: I have reviewed the past 24 hour labs
[2016-10-22] MEDS: cefTRIAXone 1,000 MG in SODIUM CHLORIDE 0.9% 100 ML IV SCH (09:54)
[2016-10-22] MEDS: FLUTICASONE/SALMETEROL 250-50 DISKUS 14 DOSE INH SCH ×2 (09:55→21:17)
[2016-10-22] MEDS: APIXABAN 5 MG TABLET PO SCH ×2 (09:55→16:35)
[2016-10-22] MEDS: ALLOPURINOL 300 MG TABLET PO SCH (09:55)
[2016-10-22] MEDS: CARVEDILOL 6.25 MG TABLET PO SCH ×2 (09:55→16:35)
[2016-10-22] MEDS: PANTOPRAZOLE 40 MG VIAL IV SCH (09:56)
[2016-10-22] MEDS: MAGNESIUM HYDROXIDE SUSP 30 ML UDCUP PO PRN (16:35)
[2016-10-22] MEDS: FLUCONAZOLE INJ 100 MG in IV BAG 1 EACH IV SCH (18:19)
--- NOTE | 2016-10-22 23:15 | Nephrology Progress Note ---
Nephrology - PN: Subj Interval history: He states he feels about the same as yesterday. Exam (PN)-Nephrology - Vital Signs Vital signs: Period Temp Pulse Resp BP Sys/Abdullahi Pulse Ox Last 24 Hr 97 F-97.4 F 72-94 20-27 96-114/66-80 96-100 Exam: ENT: Normal Cardiovascular: Regular rate and rhythm. No murmur rub or gallop Lungs: Trace breath sounds in the bases. No rales Extremities: No edema - Lab 10/22/16 04:55 10/22/16 04:55 Most recent lab results Calcium 8.5 MG/DL (8.5-10.1) 10/22/16 04:55 Magnesium 2.6 MG/DL (1.8-2.4) H 10/22/16 04:55 Assessment and Plan (1) Squamous cell carcinoma lung Status: Acute Assessment and plan: 61-year-old man admitted with: * Squamous cell carcinoma, lung. Status post Taxol and carboplatin chemotherapy. Undergoing radiation treatment * Stomatitis * ARF. UOP improving. Creat stable. Rec avoiding contrast at this time * Hyperkalemia. Potassium supplement discontinued. * Metabolic acidosis. Continue IV bicarbonate * Abnormal liver function tests. Liver dysfunction is the likely cause for his lactic acidosis. Current Visit: Yes (2) ARF (acute renal failure) Status: Acute Current Visit: Yes (3) Lactic acidosis Status: Acute Current Visit: Yes (4) Abnormal liver function tests Status: Acute Current Visit: Yes (5) Hyperkalemia Status: Acute Current Visit: Yes (6) Stomatitis Status: Acute Current Visit: Yes
[2016-10-23 06:24] LABS: Basophils # 0.1 10*3/uL (0.0-0.2); Basophils % 2.4 % (0.0-0.8); Hemoglobin 8.1 GM/DL (14.0-18.0); Immature Granulocytes % 3.5 %; Immature Granulocytes Absolute 0.16 #; Lymphocytes # 0.9 10*3/uL (1.4-4.0); Lymphocytes % 20.1 % (21.2-54.2); Mean Corpuscular HGB Conc 32.4 GM/DL (32-36); Mean Corpuscular Hemoglobin 25 PG (27-34); Mean Corpuscular Volume 78.4 FL (87-102); Mean Platelet Volume 13.1 FL (9.6-12.0); Monocytes % 22.3 % (1.7-12.7); NRBC # 4.53 10*3/uL; Neutrophils # 2.4 10*3/uL (1.4-7.4); Neutrophils % 51.7 % (38.7-73.9); Platelet Count 66 T/CUMM (130-400); Red Blood Count 3.19 MC/CUMM (3.8-5.5); Red Cell Distribution Width 19.3 % (9.3-17.3); White Blood Count 4.6 T/CUMM (4-12)
[2016-10-23 07:02] LABS: Albumin 2.8 G/DL (3.4-5.0); Bilirubin,Total 1.8 MG/DL (0.2-1.0); Magnesium 2.9 MG/DL (1.8-2.4); Potassium 5.4 MMOL/L (3.5-5.1); Total Protein 6.3 G/DL (6.4-8.3)
[2016-10-23 07:12] LABS: Band Neutrophils 1 % (0-10); Hypochromasia 1+; Lymphocytes 20 % (20-55); Metamyelocytes 1 %; Nucleated Red Blood Cells 142 (0-5); Segmented Neutrophils 61 % (50-85); Total Cells Counted 100
[2016-10-23 07:13] LABS: Anisocytosis 1+; Microcytosis 1+
[2016-10-23 07:14] LABS: Platelet Estimate Decreased; Polychromasia Slight
[2016-10-23] MEDS ORDERED: SODIUM CHLORIDE 0.9% 1,000 ML IV ONE (08:08)
--- NOTE | 2016-10-23 08:10 | Oncology Progress Note ---
Assessment and Plan (1) COPD (chronic obstructive pulmonary disease) Status: Acute Current Visit: Yes (2) Lactic acidosis Status: Acute Current Visit: Yes (3) Nausea & vomiting Status: Acute Current Visit: Yes (4) Pleural effusion, right Status: Acute Current Visit: Yes (5) Squamous cell carcinoma lung Status: Acute Current Visit: Yes (6) Stomatitis Status: Acute Current Visit: Yes Oncology Subjective PN Interval history: Mr. Padilla is about the same today as he was yesterday. His creatinine and liver enzymes are slightly improved. I will give him another bolus of normal saline today and continue with his current IV fluids. I will increase the dose of his fluconazole since his kidney function is improving. He will remain on Rocephin. He and I again had a long talk today that he is not improving of the right I would like. If he does worsen we do not plan to put him on life support. His oral candidiasis is slowly improving. His hemoglobin remained stable at 8.1. If this drops below 8 we will likely transfuse. I have asked physical therapy to begin working with him. I encouraged him to increase his p.o. intake if able. I will DC his Eliquis since this is only prophylactic due to his heart condition. I will place him on low-dose Lovenox to prevent DVT. His condition is guarded at this time. He still has a few days before he would be in any physical shape to be discharged. Exam - Constitutional Vitals: Period Temp Pulse Resp BP Sys/Abdullahi Pulse Ox Last 24 Hr 97.0 F-99.2 F 72-94 20-27 97-113/66-80 96-100 General appearance: normal weight, no acute distress - Head Head Exam: Present: normocephalic, atraumatic - Eye Eye Exam: Present: EOMI Pupils: Present: PERRL - ENT ENT exam: Present: normal oropharynx - Neck Neck exam: Absent: lymphadenopathy, thyromegaly - Respiratory Respiratory exam: Present: CTAB. Absent: wheezes - Cardiovascular Cardiovascular exam: Present: RRR. Absent: irregular rhythm, JVD Results - Labs CBC & BMP: 10/23/16 05:35 10/23/16 05:34 Lab Results: I have reviewed the past 24 hour labs
[2016-10-23] MEDS: cefTRIAXone 1,000 MG in SODIUM CHLORIDE 0.9% 100 ML IV SCH (08:59)
[2016-10-23] MEDS: FLUTICASONE/SALMETEROL 250-50 DISKUS 14 DOSE INH SCH ×2 (09:00→20:54)
[2016-10-23] MEDS: ALLOPURINOL 300 MG TABLET PO SCH (09:00)
[2016-10-23] MEDS: ENOXAPARIN 40 MG/0.4 ML SYRINGE SUBCUT SCH (09:00)
[2016-10-23] MEDS: CARVEDILOL 6.25 MG TABLET PO SCH ×2 (09:00→17:15)
[2016-10-23] MEDS: PANTOPRAZOLE 40 MG VIAL IV SCH (09:06)
[2016-10-23] MEDS: APIXABAN 5 MG TABLET PO SCH (09:23)
[2016-10-23] MEDS: FLUCONAZOLE INJ 200 MG in PREMIX 1 EACH IV SCH (10:40)
[2016-10-23] MEDS: SODIUM BICARB INJ 50 MEQ in DEXTROSE 5% NACL 0.45% 1,000 ML IV SCH ×2 (10:41→20:52)
[2016-10-23] MEDS: MORPHINE 2 MG/1 ML SYRINGE IV PRN (21:04)
--- NOTE | 2016-10-23 21:24 | Nephrology Progress Note ---
Nephrology - PN: Subj Interval history: He remains weak. He states he feels slightly better than yesterday Exam (PN)-Nephrology - Vital Signs Vital signs: Period Temp Pulse Resp BP Sys/Abdullahi Pulse Ox Last 24 Hr 96.0 F-99.2 F 83-92 18-25 97-121/70-86 98-100 Exam: Gen.: Alert ENT: Pupils equal round reactive to light. EOMs intact. Mucous membranes moist. Neck: Supple. No JVD or bruit. Cardiovascular: Regular rate and rhythm. No murmur rub or gallop Lungs: No rales or wheezes Abdomen: Soft. Nontender. Positive bowel sounds. No organomegaly Extremities: No edema - Lab 10/23/16 05:35 10/23/16 05:34 Most recent lab results Calcium 8.0 MG/DL (8.5-10.1) L 10/23/16 05:34 Magnesium 2.9 MG/DL (1.8-2.4) H 10/23/16 05:34 Assessment and Plan (1) Squamous cell carcinoma lung Status: Acute Assessment and plan: 61-year-old man admitted with: * Squamous cell carcinoma, lung. Status post Taxol and carboplatin chemotherapy. Undergoing radiation treatment * Stomatitis * ARF. UOP improving. Creatinine improved * Hyperkalemia. Potassium supplement discontinued. * Metabolic acidosis. Improved with IV bicarbonate * Abnormal liver function tests. Current Visit: Yes (2) ARF (acute renal failure) Status: Acute Current Visit: Yes (3) Lactic acidosis Status: Acute Current Visit: Yes (4) Abnormal liver function tests Status: Acute Current Visit: Yes (5) Hyperkalemia Status: Acute Current Visit: Yes (6) Stomatitis Status: Acute Current Visit: Yes
[2016-10-24 06:35] LABS: Albumin 2.7 G/DL (3.4-5.0); Bilirubin,Total 2.2 MG/DL (0.2-1.0); Calcium 7.9 MG/DL (8.5-10.1); Osmolality,Calculated 279.1 MOS/KG (273-304); Potassium 5.4 MMOL/L (3.5-5.1); Total Protein 6.1 G/DL (6.4-8.3)
[2016-10-24 06:47] LABS: Basophils # 0.1 10*3/uL (0.0-0.2); Basophils % 1.7 % (0.0-0.8); Hematocrit 24.9 VOL% (42.0-52.0); Hemoglobin 7.8 GM/DL (14.0-18.0); Immature Granulocytes % 4.3 %; Immature Granulocytes Absolute 0.13 #; Lymphocytes # 0.6 10*3/uL (1.4-4.0); Lymphocytes % 20.6 % (21.2-54.2); Mean Corpuscular HGB Conc 31.3 GM/DL (32-36); Mean Corpuscular Hemoglobin 26 PG (27-34); Mean Corpuscular Volume 81.6 FL (87-102); Mean Platelet Volume 12.5 FL (9.6-12.0); Monocytes # 0.6 10*3/uL (0.11-0.8); Monocytes % 21.3 % (1.7-12.7); NRBC # 3.16 10*3/uL; Neutrophils # 1.6 10*3/uL (1.4-7.4); Neutrophils % 52.1 % (38.7-73.9); Platelet Count 57 T/CUMM (130-400); Red Blood Count 3.05 MC/CUMM (3.8-5.5); Red Cell Distribution Width 20.2 % (9.3-17.3)
[2016-10-24 07:25] LABS: Hypochromasia 2+; Lymphocytes 20 % (20-55); Segmented Neutrophils 75 % (50-85); Total Cells Counted 100
[2016-10-24 07:26] LABS: Platelet Estimate Decreased
[2016-10-24] MEDS: cefTRIAXone 1,000 MG in SODIUM CHLORIDE 0.9% 100 ML IV SCH (07:39)
[2016-10-24] MEDS: CARVEDILOL 6.25 MG TABLET PO SCH ×2 (07:39→17:15)
[2016-10-24] MEDS ORDERED: SODIUM CHLORIDE 0.9% 250 ML IV PRN (07:54)
[2016-10-24] MEDS: NYSTATIN 500,000 UNIT/5 ML UDCUP SWISH/SWAL SCH ×3 (09:35→23:33)
[2016-10-24] MEDS: ALLOPURINOL 300 MG TABLET PO SCH (09:35)
[2016-10-24] MEDS: ENOXAPARIN 40 MG/0.4 ML SYRINGE SUBCUT SCH (09:40)
[2016-10-24] MEDS: PANTOPRAZOLE 40 MG VIAL IV SCH (09:40)
[2016-10-24] MEDS: FLUCONAZOLE INJ 200 MG in PREMIX 1 EACH IV SCH (09:43)
[2016-10-24] MEDS: FLUTICASONE/SALMETEROL 250-50 DISKUS 14 DOSE INH SCH ×2 (09:50→23:33)
--- NOTE | 2016-10-24 12:16 | Oncology Progress Note ---
Assessment and Plan (1) COPD (chronic obstructive pulmonary disease) Status: Acute Current Visit: Yes (2) Lactic acidosis Status: Acute Current Visit: Yes (3) Nausea & vomiting Status: Acute Current Visit: Yes (4) Pleural effusion, right Status: Acute Current Visit: Yes (5) Squamous cell carcinoma lung Status: Acute Current Visit: Yes (6) Stomatitis Status: Acute Current Visit: Yes Oncology Subjective PN Interval history: Mr. bliss is a 61-year-old black male with advanced lung cancer that we have been treating with chemotherapy and radiation but just started therapy approximately 3 weeks ago. He was admitted 5 days ago with failure to thrive and severe esophagitis. During admission his liver enzymes and kidney function worsen. They seem to be slowly improving now but his clinical condition continues to deteriorate. He is not getting out of bed and is requiring morphine for comfort. He still is awake but is difficult to communicate with. His kidney function is back to normal so I think we should restage him with a CT scan to evaluate for progression of disease which would be a very ominous sign. I will give him 2 units of blood today since his hemoglobin is now less than 8. His blood counts continue to fall but we are approximately 10 days out from his most recent chemotherapy for this is not surprising. His liver enzymes are actually improved over the last 2 days. His bilirubin level is still around 2. He is DNR if he continues to worsen. I will add nystatin swish and swallow to further treat his oral candidiasis. I have physical therapy work with him but he is only able to rise in bed and has not even stood up in approximately 5 days now. He is on Rocephin for antimicrobial coverage. He is afebrile and blood cultures no growth. I am unsure which direction we are heading with him but he does not appear to be improving very much. He is aware how sick he is. Exam - Constitutional Vitals: Period Temp Pulse Resp BP Sys/Abdullahi Pulse Ox Last 24 Hr 96.0 F-98.2 F 74-92 18-25 97-121/65-86 97-100 General appearance: normal weight, no acute distress - Head Head Exam: Present: normocephalic, atraumatic - Eye Eye Exam: Present: EOMI Pupils: Present: PERRL - ENT ENT exam: Present: normal exam, other (Oral candidiasis) - Neck Neck exam: Absent: lymphadenopathy, thyromegaly - Respiratory Respiratory exam: Present: CTAB. Absent: wheezes - GI/Abdominal GI/Abdominal exam: Present: soft. Absent: mass - Neurological Exam Neurological exam: Present: alert Results - Labs CBC & BMP: 10/24/16 04:00 10/24/16 04:00
--- NOTE | 2016-10-24 14:02 | Nephrology Progress Note ---
Nephrology - PN: Subj Interval history: He states he feels about the same today. No chest pain or nausea. Exam (PN)-Nephrology - Vital Signs Vital signs: Period Temp Pulse Resp BP Sys/Abdullahi Pulse Ox Last 24 Hr 96.8 F-98.2 F 74-92 18-25 96-126/56-86 97-100 Exam: Gen.: Alert and oriented x3. ENT: Pupils equal round reactive to light. EOMs intact. Mucous membranes moist. Neck: Supple. No JVD or bruit. Cardiovascular: Regular rate and rhythm. No murmur rub or gallop Lungs: Decreased breath sounds right base. Left lung clear Abdomen: Soft. Nontender. Positive bowel sounds. No organomegaly Extremities: No edema - Lab 10/24/16 04:00 10/24/16 04:00 Most recent lab results Calcium 7.9 MG/DL (8.5-10.1) L 10/24/16 04:00 Magnesium 2.9 MG/DL (1.8-2.4) H 10/23/16 05:34 Assessment and Plan (1) Squamous cell carcinoma lung Status: Acute Assessment and plan: 61-year-old man admitted with: * Squamous cell carcinoma, lung. Status post Taxol and carboplatin chemotherapy. Undergoing radiation treatment * Stomatitis * ARF. UOP improving. Creatinine stable * Hyperkalemia. Resolved * Metabolic acidosis. Improved with IV bicarbonate * Abnormal liver function tests. Current Visit: Yes (2) ARF (acute renal failure) Status: Acute Current Visit: Yes (3) Lactic acidosis Status: Acute Current Visit: Yes (4) Abnormal liver function tests Status: Acute Current Visit: Yes (5) Hyperkalemia Status: Acute Current Visit: Yes (6) Stomatitis Status: Acute Current Visit: Yes
--- NOTE | 2016-10-24 14:05 | CT Report ---
Referring physician: Gui Calle MD EXAM: CT chest and abdomen with contrast DATE: October 24, 2016 COMPARISON: CT chest with contrast July 19, 2016, PET/CT August 05, 2016 REASON: Restaging lung cancer TECHNIQUE: Axial images of the chest and abdomen were obtained after administration of 100 cc of Omnipaque 350 IV contrast. Sagittal and coronal reformatted images were provided. Total DLP was 877.0 mGy*cm. CT CHEST FINDINGS: Vascular/heart: The thoracic aorta is not well opacified due to phase of contrast, but it appears normal in size. The pulmonary arteries appear patent as visualized. There is cardiomegaly, a cardiac pacing device and a minimal pericardial effusion. Scattered calcified plaque is seen at the arteries, and there is a probable stent at the LAD coronary artery. Lymph nodes: There are a few upper normal-sized mediastinal lymph nodes, some of which were hypermetabolic on the previous PET/CT. A precarinal lymph node on image 40 measures 0.8 cm in short axis diameter compared to 0.9 cm on the previous study. Overall, these lymph nodes are slightly smaller in size today. There is also a borderline prominent left hilar lymph node, measuring 0.9 cm in short axis diameter. This is similar to before. It was not obviously hypermetabolic on the previous PET/CT. No suspicious axillary adenopathy is identified. Chest wall: There is probable bilateral gynecomastia. However, evaluation of the breasts is limited on CT. Lungs: There is a large amount of right pleural fluid. There is subsequent atelectasis at the right lung, most prominent at the right lower lobe. On the previous study, there was a large hypermetabolic masslike area within the right lower lobe, extending to the posterior aspect of the right hilum. This is difficult to accurately measure due to the prominent atelectasis in this region, but it has decreased in size, measuring 2.9 x 2.3 cm on image 46. There may be additional residual neoplasm within the right lower lobe, but this is difficult confirmed. Correlation with PET/CT may be helpful. There is also at least mild narrowing of the central bronchi on the right. Emphysema is present, mainly in a centrilobular distribution. A prominent bleb is again seen at the medial aspect of the left upper lobe. There is minimal scattered atelectasis within the left lung and a small calcified granuloma within the left lower lobe. A 0.3 cm noncalcified nodule is seen within the superior segment of the left lower lobe on image 40. It cannot be confirmed on the previous study, but this could be related to its small size and volume averaging. There is also a stable 0.2-0.3 cm noncalcified nodule within the left upper lobe on image 33. Bones: Stable small defects are seen at the right scapula. They were not hypermetabolic on the previous PET/CT and may represent a benign process such is prominent vascular channels. IMPRESSION: 1. The previously seen large hypermetabolic mass within the right lower lobe has decreased in size but is difficult to accurately measure. There are also several upper normal-sized mediastinal lymph nodes which have overall decreased in size. This suggests treatment response. 2. There are a few small noncalcified nodules within the left lung which are nonspecific. Comparison to previous studies is difficult due to their small size, and follow-up would be helpful to confirm a benign process. 3. Large amount of right pleural fluid and prominent atelectasis on the right, mainly at the right lower lobe. There is also minimal scattered atelectasis within the left lung. 4. Cardiomegaly and minimal pericardial effusion. 5. Emphysema. ABDOMEN FINDINGS: Liver: Unremarkable. Gallbladder and bile ducts: There is fluid adjacent to the gallbladder, but this is nonspecific in the setting of ascites. The gallbladder is otherwise unremarkable, and no biliary duct dilatation is seen. Pancreas: Unremarkable. Spleen: Unremarkable. Adrenals: Unremarkable. Kidneys and ureters: There are small calcifications at the renal milly bilaterally, which are likely vascular. No hydronephrosis is present. Cortical scarring is seen at both kidneys, mainly on the left. No suspicious renal lesion is identified. The ureters are unremarkable as visualized. Bowel: There is no evidence of bowel obstruction. No definite bowel inflammation is seen, but evaluation is somewhat limited by mild ascites and mesenteric edema. Appendix: The visualized portion of the appendix is unremarkable. Vasculature: The abdominal aorta is normal in size. There is moderate scattered calcified plaque at the arteries. Peritoneum/retroperitoneum: No free air is identified. There is mild ascites and mesenteric edema within the abdomen. Lymph nodes: No suspicious adenopathy is identified within the abdomen. There was a mildly prominent lymph node near the gastroesophageal junction on the previous CT of the chest. It has decreased in size and is difficult to identified today. This could represent a treated metastatic lymph node. Abdominal/pelvic wall: There is prominent anasarca. Bones: There is degenerative change at the spine with a possible left pars interarticularis defect at L5. IMPRESSION: 1. On the prior CT, there was a mildly prominent lymph node near the gastroesophageal junction. It has decreased in size and is difficult to identified today. This could represent a treated metastatic lymph node. 2. Mild ascites, mesenteric edema and prominent anasarca. 3. Cortical scarring at both kidneys. The CT exam was performed using one or more of the following dose reduction techniques: Automated exposure control and adjustment of the mA and/or kV according to patient size. PROCEDURE INTERPRETED AT [facility] DEPARTMENT OF RADIOLOGY Final Report Signed by: Dr. Beti Rodriguez
[2016-10-24] MEDS: SODIUM BICARB INJ 50 MEQ in DEXTROSE 5% NACL 0.45% 1,000 ML IV SCH ×2 (15:01→15:21)
[2016-10-24] MEDS: MORPHINE 2 MG/1 ML SYRINGE IV PRN (21:37)
--- NOTE | 2016-10-24 21:56 | Urology Consultation ---
History of Present Illness - Data of Consult Patient: new to practice Consult date: 10/24/16 Requesting Physician: Gui Calle - Consult Narrative Reason for consult: Swollen foreskin History of present illness: Mr. Bey is a 61 year old male I was called because apparently his foreskin is been retracted and its swelling and causing him pain. The nurse relates that it was not like this last night. Apparently during the day he had a bath and the foreskin was retracted but failed to retract back over the glans penis. Patient is being treated for lung cancer and was admitted for failure to thrive. On exam indeed he had a moderate paraphimosis. This was reduced and then the foreskin was then retracted back over the glans penis. Patient felt much better. I would recommend that nursing service make sure that his foreskin is always over the head of his penis. CC: Gui Calle MD - Home Medications and Allergies Home Medications: Home Medications Medication Instructions Recorded Confirmed Type Carvedilol [Coreg] 6.25 mg PO BID W/MEALS 08/15/16 10/18/16 History Furosemide 40 mg PO BID 08/15/16 10/18/16 History Apixaban [Eliquis] 5 mg PO BID W/MEALS 10/18/16 10/18/16 History Fluticasone/Salmeterol 250-50 1 puff INH BID 10/18/16 10/18/16 History [Advair 250-50] Potassium Chloride 10 meq PO DAILY 10/18/16 10/18/16 History Allergies/Adverse Reactions: Allergies Allergy/AdvReac Type Severity Reaction Status Date / Time No Known Allergies Allergy Verified 10/18/16 11:24 Exam - Constitutional Vitals: Period Temp Pulse Resp BP Sys/Abdullahi Pulse Ox Last 24 Hr 96.2 F-98.2 F 83-94 18-20 96-126/56-83 96-100 Results - Labs CBC & BMP: 10/24/16 04:00 10/24/16 04:00
[2016-10-25 03:52] LABS: Basophils % 0.4 % (0.0-0.8); Hematocrit 29.7 VOL% (42.0-52.0); Hemoglobin 9.9 GM/DL (14.0-18.0); Immature Granulocytes % 5.6 %; Immature Granulocytes Absolute 0.14 #; Lymphocytes # 0.2 10*3/uL (1.4-4.0); Lymphocytes % 9.7 % (21.2-54.2); Mean Corpuscular HGB Conc 33.3 GM/DL (32-36); Mean Corpuscular Hemoglobin 26 PG (27-34); Mean Corpuscular Volume 79.2 FL (87-102); Monocytes # 0.5 10*3/uL (0.11-0.8); Monocytes % 20.6 % (1.7-12.7); NRBC # 1.68 10*3/uL; Neutrophils # 1.6 10*3/uL (1.4-7.4); Neutrophils % 63.7 % (38.7-73.9); Platelet Count 54 T/CUMM (130-400); Red Blood Count 3.75 MC/CUMM (3.8-5.5); Red Cell Distribution Width 20.8 % (9.3-17.3); White Blood Count 2.5 T/CUMM (4-12)
[2016-10-25 04:27] LABS: Albumin 2.5 G/DL (3.4-5.0); Bilirubin,Total 2.6 MG/DL (0.2-1.0); Calcium 7.5 MG/DL (8.5-10.1); Osmolality,Calculated 276.4 MOS/KG (273-304); Potassium 5.4 MMOL/L (3.5-5.1)
[2016-10-25] MEDS: SODIUM BICARB INJ 50 MEQ in DEXTROSE 5% NACL 0.45% 1,000 ML IV SCH ×4 (05:02→21:33)
[2016-10-25 05:51] LABS: Lymphocytes 21 % (20-55); Metamyelocytes 2 %; Myelocytes 7 %; Nucleated Red Blood Cells 37 (0-5); Platelet Estimate Decreased; Promyelocytes 1 %; Segmented Neutrophils 56 % (50-85); Total Cells Counted 100
[2016-10-25] MEDS: cefTRIAXone 1,000 MG in SODIUM CHLORIDE 0.9% 100 ML IV SCH (09:45)
[2016-10-25] MEDS: FLUCONAZOLE INJ 200 MG in PREMIX 1 EACH IV SCH (09:45)
[2016-10-25] MEDS: PANTOPRAZOLE 40 MG VIAL IV SCH (09:46)
[2016-10-25] MEDS: NYSTATIN 500,000 UNIT/5 ML UDCUP SWISH/SWAL SCH ×3 (09:46→21:29)
[2016-10-25] MEDS: ALLOPURINOL 300 MG TABLET PO SCH (09:46)
[2016-10-25] MEDS: ENOXAPARIN 40 MG/0.4 ML SYRINGE SUBCUT SCH (09:46)
[2016-10-25] MEDS: FLUTICASONE/SALMETEROL 250-50 DISKUS 14 DOSE INH SCH ×2 (09:46→21:28)
[2016-10-25] MEDS: CARVEDILOL 6.25 MG TABLET PO SCH ×2 (09:46→17:22)
--- NOTE | 2016-10-25 11:27 | Oncology Progress Note ---
Oncology Subjective PN Interval history: 61-year-old male with locally advanced lung cancer. Patient is status post chemotherapy and radiation. He is having significant dyspnea today and requiring approximately 4 L of O2. He is awake and alert but ill-appearing. Breath sounds are reduced at the right base with pleural effusion large noted on CT scan. I will check coags and consult for thoracentesis. We are monitoring his blood counts including platelets and neutrophils which have trended downward. He is being followed by nephrology for acute kidney disease and also for abnormal liver enzymes. His prognosis is exceedingly poor Exam - Constitutional Vitals: Period Temp Pulse Resp BP Sys/Abdullahi Pulse Ox Last 24 Hr 96.2 F-97.8 F 83-94 18-22 96-126/56-83 96-100 Results - Labs CBC & BMP: 10/25/16 03:40 10/25/16 03:40
[2016-10-25 12:21] LABS: PT Patient Result 22.3 SECS; Partial Thromboplastin Time 45.7 SECS (0-40)
--- NOTE | 2016-10-25 14:47 | XRay Report ---
Exam: XR chest post procedure Date: 10/25/2016 Indication: Post thoracentesis Comparison: 10/19/2016 Technical: Inspiration and expiration imaging. Findings: Cardiomegaly is present with a cardiac pacing device with atrial ventricular leads present. Low volume residual right effusion without pneumothorax. Oxygen tubing is present. Impression: 1. Cardiomegaly with persistent low volume right effusion with underlying area stepsister cardiac pacing device. PROCEDURE INTERPRETED AT [facility] DEPARTMENT OF RADIOLOGY Final Report Signed by: Dr. Samy Casillas
--- NOTE | 2016-10-25 14:50 | Ultrasound Report ---
Exam: US thoracentesis Date: 10/25/2016 Indication: Right pleural effusion Comparison: None BINU Casillas D.O. Findings: The risk and benefits were explained informed consent was obtained. The patient's placed on examination table and 1% local lidocaine was administered over the right chest cavity after initial cleansing with ChloraPrep. The patient had small stab wound made and a 6 [place] thoracentesis catheter is placed into the right pleural space with real-time ultrasound guidance. The patient had 1000 cc of fluid removed. Xeroform gauze and Tegaderm dressing was applied after removal of the tube. Estimated blood loss none Complications none Condition stable Specimen sent to lab for analysis. The Impression: Satisfactory ultrasound-guided thoracentesis. PROCEDURE INTERPRETED AT [facility] DEPARTMENT OF RADIOLOGY Final Report Signed by: Dr. aSmy Casillas
[2016-10-25 15:23] LABS: RBC,Pleural Fluid 553 T/CUMM
--- NOTE | 2016-10-25 16:30 | Nephrology Progress Note ---
Nephrology - PN: Subj Interval history: He is mildly short of breath today. He denies chest pain. Exam (PN)-Nephrology - Vital Signs Vital signs: Period Temp Pulse Resp BP Sys/Abdullahi Pulse Ox Last 24 Hr 96.2 F-97.8 F 75-94 18- 92-112/59-83 96-100 Exam: ENT: Normal Cardiovascular: Regular rate and rhythm. No murmur rub or gallop Lungs: Decreased breath sounds right base. Left lung clear Extremities: No edema - Lab 10/25/16 03:40 10/25/16 03:40 Most recent lab results Calcium 7.5 MG/DL (8.5-10.1) L 10/25/16 03:40 Magnesium 2.9 MG/DL (1.8-2.4) H 10/23/16 05:34 Assessment and Plan (1) Squamous cell carcinoma lung Status: Acute Assessment and plan: 61-year-old man admitted with: * Squamous cell carcinoma, lung. Status post Taxol and carboplatin chemotherapy. Undergoing radiation treatment * Stomatitis * ARF. UOP improving. Creatinine stable * Hyperkalemia. Resolved * Metabolic acidosis. Improved with IV bicarbonate * Abnormal liver function tests. * Right pleural effusion. Agree with plans for thoracentesis Current Visit: Yes (2) ARF (acute renal failure) Status: Acute Current Visit: Yes (3) Lactic acidosis Status: Acute Current Visit: Yes (4) Abnormal liver function tests Status: Acute Current Visit: Yes (5) Hyperkalemia Status: Acute Current Visit: Yes (6) Stomatitis Status: Acute Current Visit: Yes
[2016-10-25 17:06] LABS: Lymphocytes,Pleural Fluid 74 %; Monocytes,Pleural Fluid 10 %; Neutrophils,Pleural Fluid 16 %
[2016-10-26 05:03] LABS: Hematocrit 26.7 VOL% (42.0-52.0); Hemoglobin 8.8 GM/DL (14.0-18.0); Immature Granulocytes % 3.5 %; Immature Granulocytes Absolute 0.09 #; Lymphocytes # 0.3 10*3/uL (1.4-4.0); Mean Corpuscular Hemoglobin 27 PG (27-34); Mean Corpuscular Volume 81.7 FL (87-102); Monocytes # 0.5 10*3/uL (0.11-0.8); Monocytes % 19.3 % (1.7-12.7); NRBC # 1.07 10*3/uL; Neutrophils # 1.7 10*3/uL (1.4-7.4); Neutrophils % 65.2 % (38.7-73.9); Platelet Count 41 T/CUMM (130-400); Red Blood Count 3.27 MC/CUMM (3.8-5.5); Red Cell Distribution Width 22.2 % (9.3-17.3); White Blood Count 2.6 T/CUMM (4-12)
[2016-10-26] MEDS: SODIUM BICARB INJ 50 MEQ in DEXTROSE 5% NACL 0.45% 1,000 ML IV SCH ×4 (05:32→20:58)
[2016-10-26 05:33] LABS: Albumin 2.1 G/DL (3.4-5.0); Bilirubin,Total 1.6 MG/DL (0.2-1.0); Calcium 6.8 MG/DL (8.5-10.1); Osmolality,Calculated 300.2 MOS/KG (273-304); Potassium 4.2 MMOL/L (3.5-5.1); Total Protein 5.1 G/DL (6.4-8.3)
[2016-10-26 05:51] LABS: Band Neutrophils 1 % (0-10); Lymphocytes 21 % (20-55); Nucleated Red Blood Cells 38 (0-5); Segmented Neutrophils 66 % (50-85); Total Cells Counted 100
[2016-10-26 05:52] LABS: Hypochromasia 1+; Microcytosis 1+
[2016-10-26 05:53] LABS: Anisocytosis 1+; Platelet Estimate Decreased; Target Cells Slight
[2016-10-26] MEDS: PANTOPRAZOLE 40 MG VIAL IV SCH (08:27)
[2016-10-26] MEDS: ENOXAPARIN 40 MG/0.4 ML SYRINGE SUBCUT SCH (08:27)
[2016-10-26] MEDS: ALLOPURINOL 300 MG TABLET PO SCH (08:28)
[2016-10-26] MEDS: NYSTATIN 500,000 UNIT/5 ML UDCUP SWISH/SWAL SCH ×3 (08:28→20:58)
[2016-10-26] MEDS: FLUTICASONE/SALMETEROL 250-50 DISKUS 14 DOSE INH SCH ×2 (08:28→20:58)
[2016-10-26] MEDS: FLUCONAZOLE INJ 200 MG in PREMIX 1 EACH IV SCH (08:28)
[2016-10-26] MEDS: CARVEDILOL 6.25 MG TABLET PO SCH ×2 (08:28→17:20)
[2016-10-26] MEDS: cefTRIAXone 1,000 MG in SODIUM CHLORIDE 0.9% 100 ML IV SCH (08:28)
--- NOTE | 2016-10-26 09:03 | Nephrology Progress Note ---
Nephrology - PN: Subj Interval history: Mr. bliss is seen in follow-up of his acute renal impairment with hyperkalemia. His potassium is 4.2 and his measured bicarb was 25. Serum creatinine is 1.0 he appears weak but is in no distress. He did eat breakfast this morning and is tolerating it well. Will continue with bicarb supplementation and possibly be able to stop that tomorrow Exam (PN)-Nephrology - Vital Signs Vital signs: Period Temp Pulse Resp BP Sys/Abdullahi Pulse Ox Last 24 Hr 97.2 F-97.7 F 75-83 18-26 92-109/64-75 96-100 - Lab 10/26/16 04:12 10/26/16 06:28 Most recent lab results Calcium 6.8 MG/DL (8.5-10.1) L 10/26/16 04:12 Magnesium 2.9 MG/DL (1.8-2.4) H 10/23/16 05:34
--- NOTE | 2016-10-26 14:42 | Oncology Progress Note ---
Oncology Subjective PN Interval history: Lung cancer recently diagnosed with chemotherapy and radiation. He is awake and remains chronically ill. He is somewhat uncomfortable and and I will start a low-dose of transdermal fentanyl. His creatinine has normalized with only a mild acidosis remaining and I will begin to decrease his IV fluids which contain sodium bicarbonate. Status post 1 L thoracentesis uneventfully performed yesterday. Prognosis still appears very poor. No family was present Exam - Constitutional Vitals: Period Temp Pulse Resp BP Sys/Abdullahi Pulse Ox Last 24 Hr 96.9 F-97.7 F 75-106 18-83 95-109/66-76 94-100 Results - Labs CBC & BMP: 10/26/16 04:12 10/26/16 06:28
[2016-10-26] MEDS ORDERED: fentaNYL 25 MCG/HR PATCH TRANSDERM SCH (15:00)
--- NOTE | 2016-10-26 20:21 | XRay Report ---
History: Lung cancer Date: 10/26/2016 Study: Chest x-ray AP portable Comparison exam: 10/25/2016 There is no evidence of a pneumothorax. There is mild to moderate right pleural effusion, perhaps slightly increased compared to the previous study. There is some atelectatic change in the right lung base, grossly similar. The left lung remains clear. There is continued cardiomegaly without change. There is no pulmonary vascular engorgement. The mediastinal contours are stable. A left subclavian multilead pacemaker device is stable. Osseous structures are unchanged. Impression: Minimally increased right pleural effusion compared to the previous study. Otherwise unchanged PROCEDURE INTERPRETED AT [facility] DEPARTMENT OF RADIOLOGY Final Report Signed by: Dr. Kalpana Montague
[2016-10-26] MEDS: MORPHINE 2 MG/1 ML SYRINGE IV PRN (22:16)
[2016-10-27 05:24] LABS: Eosinophils % 0.3 % (0.00-10.9); Hematocrit 31.9 VOL% (42.0-52.0); Immature Granulocytes % 1.9 %; Immature Granulocytes Absolute 0.07 #; Lymphocytes # 0.4 10*3/uL (1.4-4.0); Lymphocytes % 10.2 % (21.2-54.2); Mean Corpuscular HGB Conc 33.5 GM/DL (32-36); Mean Corpuscular Hemoglobin 27 PG (27-34); Mean Corpuscular Volume 81.2 FL (87-102); Mean Platelet Volume 12.3 FL (9.6-12.0); Monocytes # 0.6 10*3/uL (0.11-0.8); Monocytes % 15.5 % (1.7-12.7); NRBC # 0.78 10*3/uL; Neutrophils # 2.7 10*3/uL (1.4-7.4); Neutrophils % 72.1 % (38.7-73.9); Red Cell Distribution Width 23.2 % (9.3-17.3)
[2016-10-27 05:30] LABS: Red Blood Count 3.93 MC/CUMM (3.8-5.5); White Blood Count 3.7 T/CUMM (4-12)
[2016-10-27 05:31] LABS: Hemoglobin 10.7 GM/DL (14.0-18.0); Platelet Count 53 T/CUMM (130-400)
[2016-10-27 05:53] LABS: Albumin 2.4 G/DL (3.4-5.0); Bilirubin,Total 2.4 MG/DL (0.2-1.0); Osmolality,Calculated 275.1 MOS/KG (273-304); Potassium 5.3 MMOL/L (3.5-5.1); Total Protein 6.1 G/DL (6.4-8.3)
[2016-10-27 06:08] LABS: Band Neutrophils 2 % (0-10); Lymphocytes 16 % (20-55); Macrocytosis 1+; Nucleated Red Blood Cells 10 (0-5); Platelet Estimate Decreased; Polychromasia Slight; Segmented Neutrophils 75 % (50-85); Total Cells Counted 100
[2016-10-27] MEDS: ALLOPURINOL 300 MG TABLET PO SCH (08:43)
[2016-10-27] MEDS: FLUCONAZOLE INJ 200 MG in PREMIX 1 EACH IV SCH (08:43)
[2016-10-27] MEDS: NYSTATIN 500,000 UNIT/5 ML UDCUP SWISH/SWAL SCH ×3 (08:43→20:41)
[2016-10-27] MEDS: FLUTICASONE/SALMETEROL 250-50 DISKUS 14 DOSE INH SCH ×2 (08:43→20:42)
[2016-10-27] MEDS: ENOXAPARIN 40 MG/0.4 ML SYRINGE SUBCUT SCH (08:43)
[2016-10-27] MEDS: PANTOPRAZOLE 40 MG VIAL IV SCH (08:43)
[2016-10-27] MEDS: cefTRIAXone 1,000 MG in SODIUM CHLORIDE 0.9% 100 ML IV SCH (08:43)
[2016-10-27] MEDS: CARVEDILOL 6.25 MG TABLET PO SCH ×2 (08:44→19:10)
[2016-10-27] MEDS: MORPHINE 2 MG/1 ML SYRINGE IV PRN (08:51)
--- NOTE | 2016-10-27 08:58 | Nephrology Progress Note ---
Nephrology - PN: Subj Interval history: Mr. bliss is seen in follow-up of his renal impairment. His creatinine is now down to 0.8 and he is without complaint other than some left knee soreness. There is a small left knee effusion but no tenderness or increased local temperature. Will sign off for now please call if we can help. Exam (PN)-Nephrology - Vital Signs Vital signs: Period Temp Pulse Resp BP Sys/Abdullahi Pulse Ox Last 24 Hr 97 F-97.5 F 87-106 18-21 106-111/74-80 93-100 - Lab 10/27/16 04:29 10/27/16 04:29 Most recent lab results Calcium 8.0 MG/DL (8.5-10.1) L 10/27/16 04:29 Magnesium 2.9 MG/DL (1.8-2.4) H 10/23/16 05:34
--- NOTE | 2016-10-27 11:54 | Oncology Progress Note ---
Oncology Subjective PN Interval history: Lung cancer with poor prognosis. Patient remains bedbound. He continues to exhibit abnormal respirations. Left chest pacemaker defibrillator is noted dating back to 2003 at the time of a large myocardial infarction per patient report. He has congested breath sounds today right greater than left without wheezes. He remains on supplemental O2. No leg edema is noted though he does have tenderness of the bilateral plantar surface. I am going to increase his fentanyl patch both for pain and to decrease work of breathing. Continue to monitor vitals closely. Exam - Constitutional Vitals: Period Temp Pulse Resp BP Sys/Abdullahi Pulse Ox Last 24 Hr 97 F-98.3 F 86-106 18-21 106-111/74-80 93-100 Results - Labs CBC & BMP: 10/27/16 04:29 10/27/16 04:29
[2016-10-27] MEDS: fentaNYL 50 MCG/HR PATCH TRANSDERM SCH (16:29)
[2016-10-27] MEDS: TEMAZEPAM 7.5 MG CAPSULE PO PRN (20:41)
[2016-10-28] MEDS: SODIUM BICARB INJ 50 MEQ in DEXTROSE 5% NACL 0.45% 1,000 ML IV SCH ×4 (01:51→21:33)
[2016-10-28 08:13] LABS: Basophils % 0.3 % (0.0-0.8); Eosinophils % 0.3 % (0.00-10.9); Hemoglobin 11.3 GM/DL (14.0-18.0); Immature Granulocytes Absolute 0.04 #; Lymphocytes # 0.4 10*3/uL (1.4-4.0); Lymphocytes % 9.4 % (21.2-54.2); Mean Corpuscular HGB Conc 32.3 GM/DL (32-36); Mean Corpuscular Hemoglobin 27 PG (27-34); Mean Corpuscular Volume 84.5 FL (87-102); Monocytes # 0.5 10*3/uL (0.11-0.8); Monocytes % 12.6 % (1.7-12.7); Neutrophils # 2.9 10*3/uL (1.4-7.4); Neutrophils % 76.4 % (38.7-73.9); Platelet Count 51 T/CUMM (130-400); Red Blood Count 4.14 MC/CUMM (3.8-5.5); Red Cell Distribution Width 25.2 % (9.3-17.3); White Blood Count 3.8 T/CUMM (4-12)
[2016-10-28 09:03] LABS: Band Neutrophils 3 % (0-10); Hypochromasia 1+; Lymphocytes 14 % (20-55); Nucleated Red Blood Cells 6 (0-5); Segmented Neutrophils 78 % (50-85); Total Cells Counted 100
[2016-10-28 09:04] LABS: Anisocytosis 1+; Macrocytosis 1+; Platelet Estimate Decreased
[2016-10-28] MEDS: NYSTATIN 500,000 UNIT/5 ML UDCUP SWISH/SWAL SCH ×3 (10:11→21:33)
[2016-10-28] MEDS: ENOXAPARIN 40 MG/0.4 ML SYRINGE SUBCUT SCH (10:11)
[2016-10-28] MEDS: CARVEDILOL 6.25 MG TABLET PO SCH ×2 (10:11→17:36)
[2016-10-28] MEDS: ALLOPURINOL 300 MG TABLET PO SCH (10:11)
[2016-10-28] MEDS: PANTOPRAZOLE 40 MG VIAL IV SCH (10:11)
[2016-10-28] MEDS: FLUCONAZOLE INJ 200 MG in PREMIX 1 EACH IV SCH (10:12)
[2016-10-28] MEDS: cefTRIAXone 1,000 MG in SODIUM CHLORIDE 0.9% 100 ML IV SCH (10:12)
[2016-10-28] MEDS: FLUTICASONE/SALMETEROL 250-50 DISKUS 14 DOSE INH SCH ×2 (10:19→21:32)
--- NOTE | 2016-10-28 10:27 | XRay Report ---
Portable chest Date: 10/28/2016 Clinical history: Lung cancer Comparison: 10/26/2016 Technique: Portable AP sitting chest Findings: Stable cardiomegaly and left subclavian atrioventricular pacemaker. Progressive pleural and parenchymal findings in the right hemithorax. More stable findings in the left lung. The mediastinum and osseous structures are unchanged in appearance. Impression: Progressive moderate right pleural effusion with increased atelectasis/infiltration with apparent underlying carcinoma of the lung. Stable left subclavian atrioventricular AICD and cardiomegaly. PROCEDURE INTERPRETED AT [facility] DEPARTMENT OF RADIOLOGY Final Report Signed by: Dr. Edith Maier
--- NOTE | 2016-10-28 15:45 | Oncology Progress Note ---
Oncology Subjective PN Interval history: Awake and interactive. Chronically ill-appearing. No wheezes are heard on examination. Abdomen remains mildly distended and gaseous resonance to percussion. No recent BM reported though his intake is very limited. No new orders Exam - Constitutional Vitals: Period Temp Pulse Resp BP Sys/Abdullahi Pulse Ox Last 24 Hr 97 F-98.6 F 73-97 18-21 93-125/64-77 96-99 Results - Labs CBC & BMP: 10/28/16 06:52 10/27/16 04:29
[2016-10-29] MEDS: MAGNESIUM HYDROXIDE SUSP 30 ML UDCUP PO PRN (06:38)
--- NOTE | 2016-10-29 07:59 | Oncology Progress Note ---
Assessment and Plan (1) COPD (chronic obstructive pulmonary disease) Status: Acute Current Visit: Yes (2) Lactic acidosis Status: Acute Current Visit: Yes (3) Nausea & vomiting Status: Acute Current Visit: Yes (4) Pleural effusion, right Status: Acute Current Visit: Yes (5) Squamous cell carcinoma lung Status: Acute Current Visit: Yes (6) Stomatitis Status: Acute Current Visit: Yes Oncology Subjective PN Interval history: Mr. bliss is still not much improved from last week. He is not getting out of bed on his own and it does not appear like he is doing much with physical therapy. We will see how he does this week. He lives alone so I think we are going to have to start considering placement. Is unable to get out of bed and do his own normal activities of daily living, I do not see any reason to continue on with treating his cancer. We may have to consider hospice care only. I recheck lab work today. He has no real complaints other than weakness. He is alert and awake and appears to be at his baseline from a mental status standpoint. His chest x-ray yesterday shows persistent right pleural effusion but he did not really have any symptomatic relief when he had this drained 3 days ago. Exam - Constitutional Vitals: Period Temp Pulse Resp BP Sys/Abdullahi Pulse Ox Last 24 Hr 96.0 F-97.8 F 86-94 12-20 93-125/62-77 93-100 General appearance: normal weight, no acute distress - Head Head Exam: Present: normocephalic, atraumatic - Eye Eye Exam: Present: EOMI Pupils: Present: PERRL - ENT ENT exam: Present: normal exam, normal oropharynx - Neck Neck exam: Absent: lymphadenopathy, thyromegaly - Respiratory Respiratory exam: Present: CTAB. Absent: wheezes - Cardiovascular Cardiovascular exam: Present: RRR. Absent: JVD - GI/Abdominal GI/Abdominal exam: Present: soft. Absent: ascites, distended, mass - Neurological Exam Neurological exam: Present: alert - Skin Skin exam: Present: warm, dry Results - Labs CBC & BMP: 10/28/16 06:52 10/27/16 04:29
[2016-10-29 08:49] LABS: Basophils % 0.2 % (0.0-0.8); Hematocrit 34.7 VOL% (42.0-52.0); Hemoglobin 11.1 GM/DL (14.0-18.0); Immature Granulocytes % 0.9 %; Immature Granulocytes Absolute 0.05 #; Lymphocytes # 0.4 10*3/uL (1.4-4.0); Mean Corpuscular Hemoglobin 27 PG (27-34); Mean Platelet Volume 11.4 FL (9.6-12.0); Monocytes # 0.5 10*3/uL (0.11-0.8); NRBC # 0.21 10*3/uL; Neutrophils # 4.3 10*3/uL (1.4-7.4); Neutrophils % 81.9 % (38.7-73.9); Platelet Count 56 T/CUMM (130-400); Red Blood Count 4.08 MC/CUMM (3.8-5.5); Red Cell Distribution Width 25.6 % (9.3-17.3); White Blood Count 5.3 T/CUMM (4-12)
[2016-10-29 09:22] LABS: Albumin 2.6 G/DL (3.4-5.0); Bilirubin,Total 2.7 MG/DL (0.2-1.0); Magnesium 2.8 MG/DL (1.8-2.4); Potassium 5.3 MMOL/L (3.5-5.1)
[2016-10-29 09:28] LABS: Band Neutrophils 4 % (0-10); Lymphocytes 9 % (20-55); Microcytosis 1+; Nucleated Red Blood Cells 2 (0-5); Platelet Estimate Decreased; Polychromasia Slight; Segmented Neutrophils 78 % (50-85); Target Cells Slight; Total Cells Counted 100
[2016-10-29] MEDS: CARVEDILOL 6.25 MG TABLET PO SCH ×2 (09:42→17:42)
[2016-10-29] MEDS: ALLOPURINOL 300 MG TABLET PO SCH (09:42)
[2016-10-29] MEDS: ENOXAPARIN 40 MG/0.4 ML SYRINGE SUBCUT SCH (09:42)
[2016-10-29] MEDS: cefTRIAXone 1,000 MG in SODIUM CHLORIDE 0.9% 100 ML IV SCH (09:43)
[2016-10-29] MEDS: NYSTATIN 500,000 UNIT/5 ML UDCUP SWISH/SWAL SCH ×3 (09:43→21:31)
[2016-10-29] MEDS: PANTOPRAZOLE 40 MG VIAL IV SCH (09:43)
[2016-10-29] MEDS: FLUTICASONE/SALMETEROL 250-50 DISKUS 14 DOSE INH SCH ×2 (09:49→21:30)
[2016-10-29] MEDS: FLUCONAZOLE INJ 200 MG in PREMIX 1 EACH IV SCH (10:33)
--- NOTE | 2016-10-29 12:23 | Nephrology Progress Note ---
Nephrology - PN: Subj Interval history: He denies pain or nausea. Exam (PN)-Nephrology - Vital Signs Vital signs: Period Temp Pulse Resp BP Sys/Abdullahi Pulse Ox Last 24 Hr 96.0 F-97.8 F 86-90 12-20 109-122/62-76 93-100 Exam: ENT: Normal Cardiovascular: Regular rate and rhythm. No murmur rub or gallop Lungs: Decreased breath sounds right base. Left clear Extremities: No edema - Lab 10/29/16 08:16 10/29/16 08:16 Most recent lab results Calcium 8.0 MG/DL (8.5-10.1) L 10/29/16 08:16 Magnesium 2.8 MG/DL (1.8-2.4) H 10/29/16 08:16 Assessment and Plan (1) Squamous cell carcinoma lung Status: Acute Assessment and plan: 61-year-old man admitted with: * Squamous cell carcinoma, lung. Status post Taxol and carboplatin chemotherapy. Undergoing radiation treatment * Stomatitis * ARF. Resolved. Creatinine now normal * Metabolic acidosis. Resolved. Discontinue IV bicarbonate * Abnormal liver function tests. * Right pleural effusion. Status post thoracentesis Please recall as needed Current Visit: Yes (2) ARF (acute renal failure) Status: Acute Current Visit: Yes (3) Lactic acidosis Status: Acute Current Visit: Yes (4) Abnormal liver function tests Status: Acute Current Visit: Yes (5) Hyperkalemia Status: Acute Current Visit: Yes (6) Stomatitis Status: Acute Current Visit: Yes
[2016-10-29] MEDS: SODIUM BICARB INJ 50 MEQ in DEXTROSE 5% NACL 0.45% 1,000 ML IV SCH (14:45)
[2016-10-30 07:05] LABS: Basophils % 0.2 % (0.0-0.8); Eosinophils % 0.2 % (0.00-10.9); Hematocrit 33.1 VOL% (42.0-52.0); Hemoglobin 10.6 GM/DL (14.0-18.0); Immature Granulocytes % 0.6 %; Immature Granulocytes Absolute 0.03 #; Lymphocytes # 0.3 10*3/uL (1.4-4.0); Lymphocytes % 5.1 % (21.2-54.2); Mean Corpuscular Hemoglobin 27 PG (27-34); Mean Corpuscular Volume 84.2 FL (87-102); Monocytes # 0.4 10*3/uL (0.11-0.8); Monocytes % 8.5 % (1.7-12.7); NRBC # 0.17 10*3/uL; Neutrophils # 4.3 10*3/uL (1.4-7.4); Neutrophils % 85.4 % (38.7-73.9); Platelet Count 67 T/CUMM (130-400); Red Blood Count 3.93 MC/CUMM (3.8-5.5); White Blood Count 5.1 T/CUMM (4-12)
[2016-10-30 07:29] LABS: Albumin 2.2 G/DL (3.4-5.0); Bilirubin,Total 2.2 MG/DL (0.2-1.0); Magnesium 2.9 MG/DL (1.8-2.4); Potassium 5.9 MMOL/L (3.5-5.1); Total Protein 6.1 G/DL (6.4-8.3)
[2016-10-30 07:32] LABS: Burr Cells Slight; Elliptocytes Few; Hypochromasia 1+; Microcytosis 1+; Platelet Estimate Decreased
--- NOTE | 2016-10-30 07:36 | Oncology Progress Note ---
Assessment and Plan (1) COPD (chronic obstructive pulmonary disease) Status: Acute Current Visit: Yes (2) Lactic acidosis Status: Acute Current Visit: Yes (3) Nausea & vomiting Status: Acute Current Visit: Yes (4) Pleural effusion, right Status: Acute Current Visit: Yes (5) Squamous cell carcinoma lung Status: Acute Current Visit: Yes (6) Stomatitis Status: Acute Current Visit: Yes Oncology Subjective PN Interval history: Mr. Bey still remains very weak. Physical therapy has restarted evaluating him and working with him from a rehabilitation standpoint. I am unsure what our endpoint is. The question at this time is if he will be a swing bed candidate or a permanent chcf placement. If he does not show any improvement in his physical status for the remainder this week, I think we will have no choice but to look at chcf placement and likely hospice. If he does show rehab potential, we could consider swing bed placement with reevaluation in clinic after discharge from rehab. I am uncertain if we will ever be able to treat his cancer again in his current condition. He still has liver dysfunction of unknown etiology but it seems to be slowly improving other than a slight increase in his bilirubin level. His kidney function has returned to normal. His oral candidiasis has improved significantly. Exam - Constitutional Vitals: Period Temp Pulse Resp BP Sys/Abdullahi Pulse Ox Last 24 Hr 96.7 F-97.9 F 83-94 12-22 94-109/61-98 94-100 General appearance: normal weight, no acute distress - Head Head Exam: Present: normocephalic, atraumatic - Eye Eye Exam: Present: EOMI Pupils: Present: PERRL - ENT ENT exam: Present: normal exam, other (Improving oral candidiasis) - Neck Neck exam: Absent: lymphadenopathy, thyromegaly - Respiratory Respiratory exam: Present: CTAB. Absent: wheezes - Cardiovascular Cardiovascular exam: Present: RRR. Absent: JVD, tachycardia - GI/Abdominal GI/Abdominal exam: Present: soft. Absent: ascites, distended, firm, mass - Neurological Exam Neurological exam: Present: alert, oriented X3 - Skin Skin exam: Present: warm, dry Results - Labs CBC & BMP: 10/30/16 06:42 10/30/16 06:42 Lab Results: I have reviewed the past 24 hour labs
[2016-10-30] MEDS: PANTOPRAZOLE 40 MG VIAL IV SCH (09:37)
[2016-10-30] MEDS: ALLOPURINOL 300 MG TABLET PO SCH (09:37)
[2016-10-30] MEDS: SODIUM CHLORIDE 0.45% 1,000 ML IV SCH ×3 (09:37→23:42)
[2016-10-30] MEDS: NYSTATIN 500,000 UNIT/5 ML UDCUP SWISH/SWAL SCH ×3 (09:37→21:18)
[2016-10-30] MEDS: fentaNYL 50 MCG/HR PATCH TRANSDERM SCH (09:38)
[2016-10-30] MEDS: ENOXAPARIN 40 MG/0.4 ML SYRINGE SUBCUT SCH (09:38)
[2016-10-30] MEDS: cefTRIAXone 1,000 MG in SODIUM CHLORIDE 0.9% 100 ML IV SCH (09:39)
[2016-10-30] MEDS: CARVEDILOL 6.25 MG TABLET PO SCH ×3 (09:39→16:08)
[2016-10-30] MEDS: FLUTICASONE/SALMETEROL 250-50 DISKUS 14 DOSE INH SCH ×2 (09:39→21:18)
[2016-10-30] MEDS ORDERED: SODIUM CHLORIDE 0.9% 500 ML IV ONE (09:40)
[2016-10-30] MEDS: FLUCONAZOLE INJ 200 MG in PREMIX 1 EACH IV SCH (11:42)
[2016-10-30] MEDS: DESITIN 4OZ/NYSTATIN 15 GRAM MIXTURE PASTE TOP SCH ×2 (18:44→21:18)
[2016-10-30] MEDS: TEMAZEPAM 7.5 MG CAPSULE PO PRN (21:18)
[2016-10-31 05:16] LABS: Basophils % 0.3 % (0.0-0.8); Eosinophils % 0.2 % (0.00-10.9); Hematocrit 34.7 VOL% (42.0-52.0); Hemoglobin 11.1 GM/DL (14.0-18.0); Immature Granulocytes % 0.7 %; Immature Granulocytes Absolute 0.04 #; Lymphocytes # 0.3 10*3/uL (1.4-4.0); Lymphocytes % 5.6 % (21.2-54.2); Mean Corpuscular Hemoglobin 27 PG (27-34); Mean Platelet Volume 11.6 FL (9.6-12.0); Monocytes # 0.5 10*3/uL (0.11-0.8); Monocytes % 7.9 % (1.7-12.7); NRBC # 0.13 10*3/uL; Neutrophils # 4.9 10*3/uL (1.4-7.4); Neutrophils % 85.3 % (38.7-73.9); Red Blood Count 4.13 MC/CUMM (3.8-5.5); Red Cell Distribution Width 26.1 % (9.3-17.3); White Blood Count 5.7 T/CUMM (4-12)
[2016-10-31 05:17] LABS: Platelet Count 81 T/CUMM (130-400)
[2016-10-31 05:47] LABS: Anisocytosis 1+; Hypochromasia 1+; Microcytosis 1+
[2016-10-31 05:48] LABS: Platelet Estimate Decreased; Polychromasia Slight
--- NOTE | 2016-10-31 08:17 | Oncology Progress Note ---
Assessment and Plan (1) COPD (chronic obstructive pulmonary disease) Status: Acute Current Visit: Yes (2) Lactic acidosis Status: Acute Current Visit: Yes (3) Nausea & vomiting Status: Acute Current Visit: Yes (4) Pleural effusion, right Status: Acute Current Visit: Yes (5) Squamous cell carcinoma lung Status: Acute Current Visit: Yes (6) Stomatitis Status: Acute Current Visit: Yes Oncology Subjective PN Interval history: Mr. Padilla is still very weak. Physical therapy is only able to sit him up on bedside for now. I am unsure what our next best step will be. I will going to case management involved to discuss placement issues. At this point I do not know if a swing bed would agree that he is at a place to handle aggressive physical therapy. We may be forced to look at a halfway setting with physical therapy. This could very well end up being permanent if his condition does not improve much further. For now we are still a few weeks away from even considering resuming treatment for his lung cancer. This may be something we are unable to ever do if he remains this weak. For now there is very little we are doing in the hospital other than physical therapy. I will leave him on Diflucan for now to continue treat his oral candidiasis, but this has improved significantly over the last 4-5 days. I will recheck a chemistry panel in the morning to be certain that his liver function and kidney function are continuing to improve. If a placement is arranged for tomorrow, I think he would be fine for discharge but I am in no real hurry. Exam - Constitutional Vitals: Period Temp Pulse Resp BP Sys/Abdullahi Pulse Ox Last 24 Hr 97.0 F-98.5 F 83-92 16-20 87-113/63-84 95-100 General appearance: normal weight, no acute distress - Head Head Exam: Present: normocephalic, atraumatic - Eye Eye Exam: Present: EOMI Pupils: Present: PERRL - ENT ENT exam: Present: normal exam, normal oropharynx - Neck Neck exam: Absent: lymphadenopathy, thyromegaly - Respiratory Respiratory exam: Present: CTAB. Absent: wheezes - Cardiovascular Cardiovascular exam: Present: RRR. Absent: JVD, systolic murmur - GI/Abdominal GI/Abdominal exam: Present: soft. Absent: ascites, distended, mass Results - Labs CBC & BMP: 10/31/16 04:34 10/30/16 06:42 Lab Results: I have reviewed the past 24 hour labs
[2016-10-31] MEDS: ENOXAPARIN 40 MG/0.4 ML SYRINGE SUBCUT SCH (09:19)
[2016-10-31] MEDS: NYSTATIN 500,000 UNIT/5 ML UDCUP SWISH/SWAL SCH ×3 (09:19→20:44)
[2016-10-31] MEDS: ALLOPURINOL 300 MG TABLET PO SCH (09:19)
[2016-10-31] MEDS: CARVEDILOL 6.25 MG TABLET PO SCH ×2 (09:19→16:47)
[2016-10-31] MEDS: cefTRIAXone 1,000 MG in SODIUM CHLORIDE 0.9% 100 ML IV SCH (09:20)
[2016-10-31] MEDS: PANTOPRAZOLE 40 MG VIAL IV SCH (09:21)
[2016-10-31] MEDS: DESITIN 4OZ/NYSTATIN 15 GRAM MIXTURE PASTE TOP SCH ×2 (09:23→20:44)
[2016-10-31] MEDS: FLUTICASONE/SALMETEROL 250-50 DISKUS 14 DOSE INH SCH ×2 (09:23→20:44)
[2016-10-31] MEDS: FLUCONAZOLE INJ 200 MG in PREMIX 1 EACH IV SCH (11:21)
--- NOTE | 2016-10-31 14:22 | Case Mgmt Physician Query Form ---
TB Signs and Symptoms Screening ([place]) INSTRUCTIONS: To be completed annually on residents/staff with a significant Tuberculin Skin Test (TST) upon admission/hire or a prior significant TST. To be completed on all staff at hire. Please respond to each listed symptom with an (X) in either the "YES" or "NO" box. Do you currently have any of the following symptoms: YES NO ( ) ( x) A cough If yes, is it: ( ) Productive ( ) Non- productive ( ) ( x) Hemoptysis (spitting up blood) ( ) ( x) Chest pains ( ) ( x) Weight Loss ( ) ( x) Fever ( ) ( x) Night Sweats ( ) ( x) Weakness ( ) ( x) Loss of Appetite ( ) ( x) Difficulty Breathing If you answered YES" to any of the above questions, how long have symptoms been present? Comments: If you have any questions ,please contact me. Thank You JOSH Mmcillan, OUTSIDE PLANT TECHNICIAN Email :[email or web address]
[2016-10-31] MEDS: SODIUM CHLORIDE 0.45% 1,000 ML IV SCH (14:52)
[2016-10-31] MEDS: TEMAZEPAM 7.5 MG CAPSULE PO PRN (20:44)
[2016-11-01] MEDS: SODIUM CHLORIDE 0.45% 1,000 ML IV SCH (04:18)
[2016-11-01 05:44] LABS: Basophils % 0.4 % (0.0-0.8); Eosinophils % 0.2 % (0.00-10.9); Hematocrit 36.4 VOL% (42.0-52.0); Hemoglobin 11.4 GM/DL (14.0-18.0); Immature Granulocytes Absolute 0.05 #; Lymphocytes # 0.3 10*3/uL (1.4-4.0); Mean Corpuscular HGB Conc 31.3 GM/DL (32-36); Mean Corpuscular Hemoglobin 27 PG (27-34); Mean Corpuscular Volume 86.3 FL (87-102); Mean Platelet Volume 11.6 FL (9.6-12.0); Monocytes # 0.4 10*3/uL (0.11-0.8); Monocytes % 6.8 % (1.7-12.7); NRBC # 0.06 10*3/uL; Neutrophils # 4.4 10*3/uL (1.4-7.4); Neutrophils % 85.6 % (38.7-73.9); Red Blood Count 4.22 MC/CUMM (3.8-5.5); Red Cell Distribution Width 27.1 % (9.3-17.3); White Blood Count 5.1 T/CUMM (4-12)
[2016-11-01 05:50] LABS: Platelet Count 66 T/CUMM (130-400)
[2016-11-01 06:03] LABS: Albumin 2.2 G/DL (3.4-5.0); Bilirubin,Total 2.3 MG/DL (0.2-1.0); Magnesium 2.6 MG/DL (1.8-2.4); Osmolality,Calculated 275.8 MOS/KG (273-304); Potassium 5.1 MMOL/L (3.5-5.1); Total Protein 6.5 G/DL (6.4-8.3)
[2016-11-01 06:18] LABS: Hypochromasia 1+; Microcytosis 1+; Ovalocytes Slight
[2016-11-01 06:19] LABS: Platelet Estimate Decreased; Target Cells Slight
[2016-11-01] MEDS: FLUCONAZOLE INJ 200 MG in PREMIX 1 EACH IV SCH (08:34)
[2016-11-01] MEDS: cefTRIAXone 1,000 MG in SODIUM CHLORIDE 0.9% 100 ML IV SCH (08:34)
[2016-11-01] MEDS: CARVEDILOL 6.25 MG TABLET PO SCH (08:35)
--- NOTE | 2016-11-01 08:37 | Oncology Progress Note ---
Assessment and Plan (1) COPD (chronic obstructive pulmonary disease) Status: Acute Current Visit: Yes (2) Lactic acidosis Status: Acute Current Visit: Yes (3) Nausea & vomiting Status: Acute Current Visit: Yes (4) Pleural effusion, right Status: Acute Current Visit: Yes (5) Squamous cell carcinoma lung Status: Acute Current Visit: Yes (6) Stomatitis Status: Acute Current Visit: Yes Oncology Subjective PN Interval history: Mr. Panchal seems to be doing well today. He is still not progressing as I would like with physical therapy. I still think some of this is motivation. He is a very poorly educated man and I think there may actually be some underlying mental retardation. I am trying to have him placed in a fci or a swing bed. There is some concern about chemotherapy at a facility but I do not plan on doing any type of treatment if he is still in the condition where he requires placement in a facility. If he gets to the point where he can be discharged home we can reconsider treating him but not until that point. I honestly do not think he will ever be back on treatment given his very rapid deterioration with just 2-3 weeks of radiation. Once he has placement arranged he can be discharged. At that is later today that is fine but if we need to wait until next week that is also fine. Exam - Constitutional Vitals: Period Temp Pulse Resp BP Sys/Abdullahi Pulse Ox Last 24 Hr 97.0 F-98.6 F 76-95 19-21 93-115/66-95 95-100 General appearance: no acute distress, mild distress - Head Head Exam: Present: normocephalic, atraumatic - Eye Eye Exam: Present: EOMI Pupils: Present: PERRL - ENT ENT exam: Present: normal exam, normal oropharynx - Neck Neck exam: Absent: lymphadenopathy, thyromegaly - Respiratory Respiratory exam: Present: CTAB. Absent: wheezes - Cardiovascular Cardiovascular exam: Present: RRR. Absent: JVD - GI/Abdominal GI/Abdominal exam: Present: soft. Absent: ascites, distended, mass - Neurological Exam Neurological exam: Present: alert, oriented X3 - Skin Skin exam: Present: warm, dry Results - Labs CBC & BMP: 11/01/16 04:39 11/01/16 04:39 Lab Results: I have reviewed the past 24 hour labs
[2016-11-01] MEDS: PANTOPRAZOLE 40 MG TABLET PO SCH (09:08)
[2016-11-01] MEDS: ALLOPURINOL 300 MG TABLET PO SCH (09:08)
[2016-11-01] MEDS: ENOXAPARIN 40 MG/0.4 ML SYRINGE SUBCUT SCH (09:08)
[2016-11-01] MEDS: DESITIN 4OZ/NYSTATIN 15 GRAM MIXTURE PASTE TOP SCH ×2 (09:09→21:16)
[2016-11-01] MEDS: FLUTICASONE/SALMETEROL 250-50 DISKUS 14 DOSE INH SCH ×2 (09:09→21:15)
[2016-11-02] MEDS: PANTOPRAZOLE 40 MG TABLET PO SCH (09:23)
[2016-11-02] MEDS: ENOXAPARIN 40 MG/0.4 ML SYRINGE SUBCUT SCH (09:23)
[2016-11-02] MEDS: fentaNYL 50 MCG/HR PATCH TRANSDERM SCH (09:23)
[2016-11-02] MEDS: ALLOPURINOL 300 MG TABLET PO SCH (09:23)
[2016-11-02] MEDS: FLUTICASONE/SALMETEROL 250-50 DISKUS 14 DOSE INH SCH ×2 (09:24→20:28)
[2016-11-02] MEDS: DESITIN 4OZ/NYSTATIN 15 GRAM MIXTURE PASTE TOP SCH ×2 (09:24→20:29)
--- NOTE | 2016-11-02 10:30 | Oncology Progress Note ---
Assessment and Plan (1) COPD (chronic obstructive pulmonary disease) Status: Acute Current Visit: Yes (2) Lactic acidosis Status: Acute Current Visit: Yes (3) Nausea & vomiting Status: Acute Current Visit: Yes (4) Pleural effusion, right Status: Acute Current Visit: Yes (5) Squamous cell carcinoma lung Status: Acute Current Visit: Yes (6) Stomatitis Status: Acute Current Visit: Yes Oncology Subjective PN Interval history: Mr. Bey seems to be doing well. He has been approved at [place] here locally but we were unable to get paperwork signed and time for discharge yesterday. We will likely monitor him to the weekend and hopefully have him transferred there on Friday. I discontinued all antibiotics. I doubt that physical therapy will work with him this weekend since it is nothing urgent. His oral candidiasis has improved significantly. Exam - Constitutional Vitals: Period Temp Pulse Resp BP Sys/Abdullahi Pulse Ox Last 24 Hr 96.7 F-98.4 F 85-104 18-20 93-110/67-84 91-98 General appearance: normal weight, no acute distress - Head Head Exam: Present: normocephalic, atraumatic - Eye Eye Exam: Present: EOMI Pupils: Present: PERRL - ENT ENT exam: Present: normal exam - Neck Neck exam: Absent: lymphadenopathy, thyromegaly - Respiratory Respiratory exam: Present: CTAB. Absent: wheezes - Cardiovascular Cardiovascular exam: Present: RRR. Absent: irregular rhythm, JVD - GI/Abdominal GI/Abdominal exam: Present: soft. Absent: ascites, distended, mass - Neurological Exam Neurological exam: Present: alert, oriented X3 - Psychiatric Psychiatric exam: Present: normal affect, normal mood - Skin Skin exam: Present: warm, dry Results - Labs CBC & BMP: 11/01/16 04:39 11/01/16 04:39 Lab Results: I have reviewed the past 24 hour labs
--- NOTE | 2016-11-03 09:13 | Oncology Progress Note ---
Assessment and Plan (1) COPD (chronic obstructive pulmonary disease) Status: Acute Current Visit: Yes (2) Lactic acidosis Status: Acute Current Visit: Yes (3) Nausea & vomiting Status: Acute Current Visit: Yes (4) Pleural effusion, right Status: Acute Current Visit: Yes (5) Squamous cell carcinoma lung Status: Acute Current Visit: Yes (6) Stomatitis Status: Acute Current Visit: Yes Oncology Subjective PN Interval history: Mr. Padilla has had no acute events over the last 24 hours. He still remains essentially bedbound. He is awake and alert to conversation. My plan is to hopefully have him placed tomorrow at [place]. I am unsure if this will be short-term or more permanent. We will not make any acute changes today. He appears stable. Exam - Constitutional Vitals: Period Temp Pulse Resp BP Sys/Abdullahi Pulse Ox Last 24 Hr 97.2 F-97.7 F 88-104 18-20 95-118/72-80 93-97 General appearance: normal weight, no acute distress - Head Head Exam: Present: normocephalic, atraumatic - Eye Eye Exam: Present: EOMI Pupils: Present: PERRL - ENT ENT exam: Present: normal exam, normal oropharynx - Neck Neck exam: Absent: lymphadenopathy, thyromegaly - Respiratory Respiratory exam: Present: CTAB. Absent: wheezes - Cardiovascular Cardiovascular exam: Present: RRR. Absent: JVD, systolic murmur - GI/Abdominal GI/Abdominal exam: Present: distended. Absent: ascites, firm, mass - Neurological Exam Neurological exam: Present: alert, oriented X3 - Skin Skin exam: Present: warm, dry Results - Labs CBC & BMP: 11/01/16 04:39 11/01/16 04:39
[2016-11-03] MEDS: PANTOPRAZOLE 40 MG TABLET PO SCH (09:44)
[2016-11-03] MEDS: DESITIN 4OZ/NYSTATIN 15 GRAM MIXTURE PASTE TOP SCH ×2 (09:44→21:09)
[2016-11-03] MEDS: FLUTICASONE/SALMETEROL 250-50 DISKUS 14 DOSE INH SCH ×2 (09:44→21:09)
[2016-11-03] MEDS: ALLOPURINOL 300 MG TABLET PO SCH (09:44)
[2016-11-03] MEDS: ENOXAPARIN 40 MG/0.4 ML SYRINGE SUBCUT SCH (09:44)
[2016-11-03] MEDS: TEMAZEPAM 7.5 MG CAPSULE PO PRN (22:21)
--- NOTE | 2016-11-04 08:21 | Discharge Summary ---
Hospital Course - Hospital Course Hospital Course: Mr. Padilla is a 61-year-old black male with locally advanced lung cancer who we attempted to treat with chemotherapy and radiation. He worsened rapidly with treatment after only 2-3 weeks of therapy. He has been in the hospital now for 2 weeks with failure to thrive. His condition has improved since being in the hospital but he still remains quite debilitated and is not able to get out of bed on his own. We are attempting to have him placed in a swing bed for now. There is a possibility that he may need permanent residential placement down the road. He lives alone and has very poor social support. At this point in time I do not plan on restarting chemotherapy or radiation at any point in the near future if ever. If he is discharged today I will bring him back to see me in clinic in 3 weeks to reassess his condition. 1. Please make an appointment to see me in 3 weeks in clinic with CBC, CMP, CEA and chest x-ray. Diagnosis - Discharge Diagnosis (1) COPD (chronic obstructive pulmonary disease) Status: Acute (2) Lactic acidosis Status: Acute (3) Nausea & vomiting Status: Acute (4) Pleural effusion, right Status: Acute (5) Squamous cell carcinoma lung Status: Acute (6) Stomatitis Status: Acute Discharge Plan - Discharge Data Disposition: Disch/Xfer-Ip Rehab Fac Condition at Discharge: Stable Discharge Diet: advance to your usual diet Activity: resume usual activities as tolerated Hygiene: no restrictions - Discharge Medications Continue Carvedilol [Coreg] 6.25 mg PO BID W/MEALS Fluticasone/Salmeterol 250-50 [Advair 250-50] 1 puff INH BID Changed Furosemide 40 mg PO DAILY #0 Discontinued Apixaban [Eliquis] 5 mg PO BID W/MEALS Potassium Chloride 10 meq PO DAILY - Follow Up or Referral - Forms/Instructions Exam - Constitutional Vitals: Period Temp Pulse Resp BP Sys/Abdullahi Pulse Ox Last 24 Hr 96.7 F-97.9 F 73-103 16-20 97-105/74-86 95-100 DS: Provider Date of admission: 10/19/16 12:16 Primary care physician: Preston Rousseau MD Attending physician on admission: Gui Calle MD Consults: 10/18/16 16:46 Consult to Dietitian [CONS] Routine Reason for Dietitian: Diet Instruction 10/20/16 09:17 Consult to Physician [CONS] Routine Comment: increased creat, ca lung Consulting Provider: Nitin Leo 10/22/16 08:03 Consult to Physical Therapy [CONS] Routine Reason for Physical Therapy: Evaluate and Treat 10/24/16 20:58 Consult to Physician [CONS] Routine Comment: Consulting Provider: Patrice Zelaya Consulting Provider Notified: No When should Consulting Provider be notified: Now Consult to Specialist Group: Urology When should Consulting Provider be notified: Now 10/31/16 12:03 Consult to Case Mgmt/Social Srvs [CONS] Routine Reason for Case Mgmt/Social Srvs: Swingbed/SNF/Longterm Discharging clinician: Gui Calle MD
[2016-11-04] MEDS: ALLOPURINOL 300 MG TABLET PO SCH (09:50)
[2016-11-04] MEDS: ENOXAPARIN 40 MG/0.4 ML SYRINGE SUBCUT SCH (09:50)
[2016-11-04] MEDS: FLUTICASONE/SALMETEROL 250-50 DISKUS 14 DOSE INH SCH ×2 (09:50→21:48)
[2016-11-04] MEDS: PANTOPRAZOLE 40 MG TABLET PO SCH (09:50)
[2016-11-04] MEDS: DESITIN 4OZ/NYSTATIN 15 GRAM MIXTURE PASTE TOP SCH ×2 (09:51→21:48)
[2016-11-04] MEDS ORDERED: TUBERCULIN SKIN TEST 0.1 ML SYRINGE INTRADERM ONE (10:15)
--- NOTE | 2016-11-05 08:03 | Oncology Progress Note ---
Assessment and Plan (1) COPD (chronic obstructive pulmonary disease) Status: Acute Current Visit: Yes (2) Lactic acidosis Status: Acute Current Visit: Yes (3) Nausea & vomiting Status: Acute Current Visit: Yes (4) Pleural effusion, right Status: Acute Current Visit: Yes (5) Squamous cell carcinoma lung Status: Acute Current Visit: Yes (6) Stomatitis Status: Acute Current Visit: Yes Oncology Subjective PN Interval history: Mr. Padilla was unable to leave yesterday due to paperwork issues. He is at his baseline today. I still believe he has underlying mental retardation since he is slow to respond but he has been this way since I have known him from the beginning. He does answer questions appropriately. I highly doubt we will ever treat his cancer since his physical condition will probably not allow it. Also his current social situation is not ideal for someone undergoing advanced cancer treatments with a low probability of cure. If he is discharged today, I will be happy to see him again in clinic in 3 weeks. However he does not improve significantly he is a perfect hospice candidate. I would not be surprised if he will need long-term group home placement at some point in the very near future. Hopefully can regain some of his strength and at least be able to get back home for a little while. Exam - Constitutional Vitals: Period Temp Pulse Resp BP Sys/Abdullahi Pulse Ox Last 24 Hr 97 F-98.2 F 95-111 18-21 102-104/74-79 91-100 General appearance: normal weight, no acute distress - Head Head Exam: Present: normocephalic, atraumatic - Eye Eye Exam: Present: EOMI Pupils: Present: PERRL - ENT ENT exam: Present: normal exam, normal oropharynx - Neck Neck exam: Absent: lymphadenopathy, thyromegaly - Respiratory Respiratory exam: Present: CTAB. Absent: wheezes - Cardiovascular Cardiovascular exam: Present: RRR. Absent: systolic murmur, tachycardia Results - Labs CBC & BMP: 11/01/16 04:39 11/01/16 04:39 Specialty Discharge - Follow Up or Referrals Follow up with: Gui Calle MD [Physician] - (Appointment to see Dr. Calle November 25 10: 30 AM labs, 11:00 AM for the doctor visit.)
[2016-11-05 08:23] LABS: Basophils % 0.4 % (0.0-0.8); Eosinophils % 0.4 % (0.00-10.9); Hematocrit 35.5 VOL% (42.0-52.0); Immature Granulocytes % 0.8 %; Immature Granulocytes Absolute 0.04 #; Lymphocytes # 0.3 10*3/uL (1.4-4.0); Lymphocytes % 6.6 % (21.2-54.2); Mean Corpuscular Hemoglobin 27 PG (27-34); Mean Corpuscular Volume 88.3 FL (87-102); Mean Platelet Volume 11.1 FL (9.6-12.0); Monocytes # 0.2 10*3/uL (0.11-0.8); Monocytes % 3.9 % (1.7-12.7); Neutrophils # 4.5 10*3/uL (1.4-7.4); Neutrophils % 87.9 % (38.7-73.9); Red Blood Count 4.02 MC/CUMM (3.8-5.5); Red Cell Distribution Width 27.3 % (9.3-17.3); White Blood Count 5.1 T/CUMM (4-12)
[2016-11-05 08:25] LABS: Platelet Count 99 T/CUMM (130-400)
[2016-11-05 08:43] LABS: Hypochromasia 1+; Microcytosis 1+
[2016-11-05 08:44] LABS: Anisocytosis 1+
[2016-11-05 08:45] LABS: Platelet Estimate Decreased; Target Cells Slight
[2016-11-05] MEDS: PANTOPRAZOLE 40 MG TABLET PO SCH (08:57)
[2016-11-05] MEDS: ALLOPURINOL 300 MG TABLET PO SCH (08:57)
[2016-11-05] MEDS: ENOXAPARIN 40 MG/0.4 ML SYRINGE SUBCUT SCH (08:58)
[2016-11-05] MEDS: DESITIN 4OZ/NYSTATIN 15 GRAM MIXTURE PASTE TOP SCH (08:58)
[2016-11-05] MEDS: FLUTICASONE/SALMETEROL 250-50 DISKUS 14 DOSE INH SCH (08:58)
[2016-11-05] MEDS: fentaNYL 50 MCG/HR PATCH TRANSDERM SCH (08:58)
[2016-11-05 11:44] VITALS: BP 123/69
== END 2016-11-05 11:35 | DRG 683 ==
LOC: N.ED 10:42 → INTOOBSV 15:19 → N.EDINP 15:19 → N.4E 15:41
PROVIDERS: ADMIT Specialist; ATTEND Specialist
PROC: IRTHORA (2016-10-25 14:10)